=== PATIENT | female | born 1980 | race Caucasian/White ===

== ENCOUNTER 2023-11-16 20:24 | Outpatient (REF) | payer BC, SELFPAY ==
[2023-11-23 21:08] LABS: Age Gdln ACOG Testing Note (.); HPV Aptima Positive (Negative); HPV Genotype 16 Negative (Negative); HPV Genotype 18,45 Negative (Negative); IGP, Aptima HPV, rfx 16/18,45 Note (.)
== END 2023-11-16 20:25 | disposition home or self-care (01) ==
LOC: LAB 20:24
PROVIDERS: Visit Provider Obstetrics & Gynecology
DX: Z01.419 Encounter for gynecological examination (general) (routine) without abnormal findings (principal)
CPT/HCPCS: 87624; G0145

== ENCOUNTER 2023-12-18 08:46 | Outpatient (OUT) | payer BC, SELFPAY ==
--- NOTE | 2023-12-18 08:55 | ECG_ITS ---
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
== END 2023-12-18 08:47 | disposition home or self-care (01) ==
LOC: PST 08:47
PROVIDERS: Visit Provider Obstetrics & Gynecology
DX: Z01.810 Encounter for preprocedural cardiovascular examination (principal)
CPT/HCPCS: 93005

== ENCOUNTER 2024-01-01 06:09 | Day surgery (SDC) | payer BC, SELFPAY ==
[2023-12-18 09:24] VITALS: BP 128/72; PULSE 65; TEMP 36.4; O2SAT 98; BMI 28.7
[2024-01-01] VITALS (8 sets, daily range): BP systolic 108–144; BP diastolic 60–95; PULSE 61–85; TEMP 36.1–37; O2SAT 96–100; BMI 28.1
--- OUTSIDE RECORDS SUMMARY | 2024-01-01 06:11 | XMS_ITS | CCD ---
Author Organization [facility] Care Team Providers Care Buckle Strap Puncher Name Role Phone MARKER ., DR ELIAS Attending Unavailable MARKER ., DR ELIAS Admitting Unavailable MARKER ., DR ELIAS Consulting Unavailable MISC, DR BATISTA Primary Care Unavailable EH CORBETT Consulting Unavailable KARASIK ., DR WHELAN Consulting Unavailabl e KARASIK ., DR WHELAN Attending Unavailabl e MISC, DR BATISTA Primary Care Unavailable KARASIK ., DR WHELAN Admitting Unavailabl e ZIEBMARY, DR JERSON Dunlap Consulting Unavailable KARASIK ., DR WHELAN Admitting Unavailabl e KARASIK ., DR WHELAN Consulting Unavailabl e MISC, DR BATISTA Primary Care Unavailable KARASIK ., DR WHELAN Attending Unavailabl e CONCHABERENICE Attending Unavailable CONCHA, BERENICE Attending Unavailable Problems Active Problems Problem Classification Problem Date Documented Date Episodic/Chronic Immunizations and screening for infectious disease (1 source) Encounter for screening for human papillomavirus (HPV); Translations: [ENC SCREENING HUMAN PAPILLOMAVIRUS] Onset: 11-12-2022 Episodic Other screening for suspected conditions (not mental disorders or infectious disease) (8 sources) Encounter for screening mammogram for malignant neoplasm of breast; Translations: [Encounter for screening for malignant neoplasm of cervix] Onset: 11-10-2022 Episodic Past or Other Problems Problem Classification Problem Date Documented Da te Episodic/Chronic Nonspecific chest pain (4 sources) Other chest pain; Translations: [OTHER CHEST PAIN] Onset: 08-25-2022 Episodic Other aftercare (1 source) MCC (current) use of hormonal contraceptives; Translations: [USP HORMONAL CONTRACEPTIVES] Onset: 08-27-2022 Episodic Other aftercare (1 source) Other continuous churn buttermaker (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) drug therapy; Translations: [OTH SUBSTANCE ABUSE SPECIALIST CURRENT DRUG THERAPY] Onset: 08-27-2022 Episodic Other bone disease and musculoskeletal deformities (1 source) Chondrocostal junction syndrome [Krystlee]; Translations: [CHONDROCOSTAL JUNCTION SYND TIETZE] Onset: 08-27-2022 Episodic Screening and history of mental health and substance abuse codes (1 source) Personal history of nicotine dependence; Translations: [PERSONAL HISTORY OF NICOTINE DEPEND] Onset: 08-27-2022 Episodic Results Test Name Value Interpretation Reference Range Facility MG MAMM SCREEN 3D MARSHALL CADon 12-04-2022 MG MAMM SCREEN 3D MARSHALL CAD Patient: AYESHA GRANDE Exam Date: 12/04/2022 : 1980 Gender:F Ordering : DR CLEOPATRA BUTLER . Admission #: [id number] Family : Order #: [id number] CLICK HERE TO VIEW EXAM RADIOLOGY REPORT PROCEDURE: MAMMOGRAM SCREENING 3D BILATERAL CAD COMPARISON: MG MAMM SCREEN 3D MARSHALL CAD, 11/19/2021. MG MAMM SCREEN MARSHALL W CAD, 03/07/2020. MG MAMM RT DIAG W CAD, 02/28/2019. MG MAMM SCREEN MARSHALL W CAD, 08/16/2018. INDICATIONS: Screening mammography Calculator Name NCI Breast Cancer Risk Assessment Tool 5 Year Breast Cancer Risk Not Reported. Lifetime Breast Cancer Risk Not Reported. Personal Breast Cancer No Personal Ovarian Cancer No Treatments None Family Cancers None LOCATION: [facility] BREAST COMPOSITION: Scattered areas fibroglandular density. FINDINGS: DIAGNOSTIC CATEGORY 2--BENIGN FINDING: RIGHT BREAST: No significant suspicious finding. Scattered benign-appearing calcifications are present. Stable lymph node/nodule within lower-outer quadrant. No significant change has occurred. LEFT BREAST: No significant suspicious finding. Scattered benign-appearing calcifications are present. RECOMMENDATIONS: ROUTINE MAMMOGRAM AND CLINICAL EVALUATION IN 12 MONTHS. PLEASE NOTE: A NORMAL MAMMOGRAM DOES NOT EXCLUDE THE POSSIBILITY OF BREAST CANCER. A CLINICALLY SUSPICIOUS PALPABLE LUMP SHOULD BE BIOPSIED. Dictated by: Jerson Garcia M.D. on 12/04/2022 at 14:17 Approved by: Jerson Garcia M.D. on 12/04/2022 at 14:24 Normal [facility] PAP ACOG PANEL 2: 30 to 65on 11-19-2022 . . Normal [facility] Comment on above: Result Comment: Perf ormed at: WB Performed By: #### [id number] #### [facility] [address] [address] [address] Aiden Marshall Age Gdln ACOG Testing 30-65 Normal [facility] Comment on above: Performed By: #### [id number] #### [facility] [address] [address] [address] Aiden Marshall DIAGNOSIS: Comment Normal [facility] Comment on above: Result Comment: NEGA TIVE FOR INTRAEPITHELIAL LESION OR MALIGNANCY. Performed at: WB Performed By: #### [id number] #### [facility] [address] [address] [address] Aiden Marshall HPV Aptima Positive Abnormal Negative [facility] Comment on above: Result Comment: This nucleic acid amplification test detects fourteen high-risk HPV types (16,18,31,33,35,39,45,51,52,56,58,59,66,68) without differentiation. Performed at: =G Performed By: #### [id number] #### [facility] [address] [place] [address] Dr. Aiden Marshall HPV Genotype 16 Negative Normal Negative [facility] Comment on above: Performed By: #### [id number] #### [facility] [address] [address] [address] Aiden Marshall HPV Genotype 18,45 Negative Normal Negative [facility] Comment on above: Performed By: #### [id number] #### [facility] [address] [place] [address] Dr. Aiden Marshall HPV Genotype Reflex Comment Normal [facility] Comment on above: Result Comment: Mookie betancourt, see HPV Genotype results. Performed at: WB Performed By: #### [id number] #### [facility] [address] [place] [address] Dr. Aiden Marshall Methodology: Comment Normal [facility] Comment on above: Result Comment: This liquid based ThinPrep(R) pap test was screened with the use of an image guided system. Performed at: WB Performed By: #### [id number] #### [facility] [address] [place] [address] Dr. Aiden Marshall Note: Comment Normal [facility] Comment on above: Result Comment: The Pap smear is a screening test designed to aid in the detection of premalignant and malignant conditions of the uterine cervix. It is not a diagnostic procedure and should not be used as the sole means of detecting cervical cancer. Both false-positive and false-negative reports do occur. . Performed at: WB Performed By: #### [id number] #### [facility] [address] [place] [address] Dr. Aiden Marshall Performed by: Comment Normal [facility] Comment on above: Result Comment: Joey Harley, Cash Shortage Investigator (ASCP) Performed at: WB Performed By: #### [id number] #### [facility] [address] [place] [address] Dr. Aiden Marshall Specimen adequacy: Comment Normal [facility] Comment on above: Result Comment: Sati sfactory for evaluation. Endocervical and/or squamous metaplastic cells (endocervical component) are present. Performed at: WB Performed By: #### [id number] #### [facility] [address] [place] [address] Dr. Aiden Marshall XR Abdomen 2 Viewson 023 XR Abdomen 2 Views CLINICAL HISTORY: Epigastric pain for one week with occasional diarrhea. COMPARISON: None available. TECHNIQUE: Upright and recumbent radiographs of the abdomen and pelvis were obtained. FINDINGS: There is no evidence of obstruction, pneumoperitoneum, significant ileus, constipation, or pathologic calcifications identified. Mild to moderate rotary levoscoliosis is present. The visualized bases are clear. IMPRESSION: ESSENTIALLY UNREMARKABLE ABDOMEN SERIES. Report reported and signed by Jerson Freeman on 10/10/2022 1748 Normal [facility] Film Editor Supervisor CBC AUTO DIFFon 08-26-2022 BASO # 0.1 103/ul Normal 0.0-0.1 [facility] Comment on above: Performed By: #### C BC #### [facility] [address] [place] [address] Dr. Aiden Marshall Basophils/100 WBC (Bld) 0.8 % Normal 0.2-2.0 [facility] Comment on above: Performed By: #### C BC #### [facility] [address] [place] [address] Dr. Aiden Marshall EO # 0.1 103/ul Normal 0.0-0.7 [facility] Comment on above: Performed By: #### C BC #### [facility] [address] [place] [address] Dr. Aiden Marshall Eosinophils/100 WBC (Bld) 0.7 % Critically low 0.9-7.0 [facility] Comment on above: Performed By: #### C BC #### [facility] [address] [place] [address] Dr. Aiden Marshall Erythrocyte distribution width (RBC) [Ratio] 13.4 % Normal 11.0-15.0 [facility] Comment on above: Performed By: #### C BC #### [facility] [address] [place] [address] Dr. Aiden Marshall Hematocrit (Bld) [Volume fraction] 39.8 % Normal 36.0-48.0 [facility] Comment on above: Performed By: #### C BC #### [facility] [address] [place] [address] Dr. Aiden Marshall Hemoglobin (Bld) [Mass/Vol] 13.7 g/dL Normal 12.0-16.0 [facility] Comment on above: Performed By: #### C BC #### [facility] [address] [place] [address] Dr. Aiden Marshall IG # 0.03 10e3/ul Normal 0.00-0.03 [facility] Comment on above: Performed By: #### C BC #### [facility] [address] [place] [address] Dr. Aiden Marshall IG % 0.3 % Normal 0.0-0.5 [facility] Comment on above: Performed By: #### C BC #### [facility] [address] [place] [address] Dr. Aiden Marshall LYMPH # 4.0 103/ul Critically high 1.2-3.8 [facility] Comment on above: Performed By: #### C BC #### [facility] [address] [place] [address] Dr. Aiden Marshall Lymphocytes/100 WBC (Bld) 41.5 % Normal 20.5-60.0 [facility] Comment on above: Performed By: #### C BC #### [facility] [address] [place] [address] Dr. Aiden Marshall MANUAL DIFF REQ NO Normal [facility] Comment on above: Performed By: #### C BC #### [facility] [address] [place] [address] Dr. Aiden Marshall MCH (RBC) [Entitic mass] 27.6 pg Normal 26.7-34.0 [facility] Comment on above: Performed By: #### C BC #### [facility] [address] [place] [address] Dr. Aiden Marshall MCHC (RBC) [Mass/Vol] 34.4 g/dL Normal 29.9-35.2 [facility] Comment on above: Performed By: #### C BC #### [facility] [address] [place] [address] Dr. Aiden Marshall MCV (RBC) [Entitic vol] 80.2 fL Critically low 81.0-99.0 [facility] Comment on above: Performed By: #### C BC #### [facility] [address] [place] [address] Dr. Aiden Marshall MONO # 0.4 103/ul Normal 0.3-0.8 [facility] Comment on above: Performed By: #### C BC #### [facility] [address] [place] [address] Dr. Aiden Marshall Monocytes/100 WBC (Bld) 4.1 % Normal 1.7-12.0 [facility] Comment on above: Performed By: #### C BC #### [facility] [address] [place] [address] Dr. Aiden Marshall NEUT # 5.1 103/ul Normal 1.4-6.5 [facility] Comment on above: Performed By: #### C BC #### [facility] [address] [place] [address] Dr. Aiden Marshall Neutrophils/100 WBC (Bld) 52.6 % Normal 43.0-75.0 [facility] Comment on above: Performed By: #### C BC #### [facility] [address] [place] [address] Dr. Aiden Marshall Platelet mean volume (Bld) [Entitic vol] 9.6 fL Normal 9.5-13.5 [facility] Comment on above: Performed By: #### C BC #### [facility] [address] [place] [address] Dr. Aiden Marshall PLT 316 103/ul Normal 150-450 [facility] Comment on above: Performed By: #### C BC #### [facility] [address] [place] [address] Dr. Aiden Marshall RBC 4.96 106/ul Normal 4.20-5.40 [facility] Comment on above: Performed By: #### C BC #### [facility] [address] [place] [address] Dr. Aiden Marshall WBC 9.7 103/ul Normal 4.0-11.0 [facility] Comment on above: Performed By: #### C BC #### [facility] [address] [place] [address] Dr. Aiden Marshall D-DIMERon 08-26-2022 D-DIMER 0.19 mg/L FEU Normal <=0.59 [facility] Comment on above: Performed By: #### D DIM #### [facility] [address] [place] [address] Dr. Aiden Marshall D-DIMER COMMENTS SEE BELOW Normal [facility] Comment on above: Result Comment: Incr eases in D-Dimer concentration observed with thromboembolic events can be variable due to localization, size, and age of the thrombus. Therefore, a thromboembolic event cannot be diagnosed with certainty on the basis of the reference range. D-Dimers may also be elevated for a variety of disorders including: advanced age, , coronary disease, cancer, liver disease, infection, inflammation, hematoma, DIC, trauma, post-surgery, diabetes, thrombolytic or anticoagulant therapy, stress, and generalized hospitalization. Performed By: #### D DIM #### [facility] [address] [address] [address] Aiden Marshall PROF 14(COMP METB)on 023 Albumin [Mass/Vol] 3.9 g/dL Normal 3.4-5.0 [facility] Comment on above: Performed By: #### C MP, HSTROPN #### [facility] [address] [address] [address] Aiden Marshall Albumin/Globulin [Mass ratio] 1.1 {ratio} Normal [facility] Comment on above: Performed By: #### C MP, HSTROPN #### [facility] [address] [address] [address] Aiden Marshall ALP [Catalytic activity/Vol] 54 U/L Normal 46-116 [facility] Comment on above: Performed By: #### C MP, HSTROPN #### [facility] [address] [address] [address] Aiden Marshall ALT [Catalytic activity/Vol] 19 U/L Normal 14-59 [facility] Comment on above: Performed By: #### C MP, HSTROPN #### [facility] [address] [address] [address] Aiden Marshall Anion gap [Moles/Vol] 13.5 mmol/L Normal [facility] Comment on above: Performed By: #### C MP, HSTROPN #### [facility] [address] [address] [address] Aiden Marshall AST [Catalytic activity/Vol] 13 U/L Critically low 15-37 [facility] Comment on above: Performed By: #### C MP, HSTROPN #### [facility] [address] [address] [address] Aiden Marshall Bilirubin [Mass/Vol] 0.4 mg/dL Normal 0.2-1.0 [facility] Comment on above: Performed By: #### C MP, HSTROPN #### [facility] [address] [address] [address] Aiden Marshall Calcium [Mass/Vol] 9.0 mg/dL Normal 8.5-10.1 [facility] Comment on above: Performed By: #### C JAMMIE, HSTROPN #### [facility] [address] [place] [address] Dr. Aiden Marshall Chloride [Moles/Vol] 99 mmol/L Normal 98-107 [facility] Comment on above: Performed By: #### C JAMMIE, HSTROPN #### [facility] [address] [place] [address] Dr. Aiden Marshall CO2 [Moles/Vol] 27.1 mmol/L Normal 21.0-32.0 [facility] Comment on above: Performed By: #### C JAMMIE, HSTROPN #### [facility] [address] [place] [address] Dr. Aiden Marshall Creatinine [Mass/Vol] 0.69 mg/dL Normal 0.55-1.02 [facility] Comment on above: Performed By: #### C JAMMIE, HSTROPN #### [facility] [address] [place] [address] Dr. Aiden Marshall EGFR-AF ICELANDIC >60 Normal >=60 [facility] Comment on above: Performed By: #### C JAMMIE, HSTROPN #### [facility] [address] [place] [address] Dr. Aiden Marshall EGFR-NON AF ICELANDIC >60 Normal >=60 [facility] Comment on above: Performed By: #### C JAMMIE, HSTROPN #### [facility] [address] [place] [address] Dr. Aiden Marshall Globulin (S) [Mass/Vol] 3.7 g/dL Normal [facility] Comment on above: Performed By: #### C JAMMIE, HSTROPN #### [facility] [address] [place] [address] Dr. Aiden Marshall Glucose [Mass/Vol] 104 mg/dL Normal 74-106 [facility] Comment on above: Performed By: #### C JAMMIE, HSTROPN #### [facility] [address] [place] [address] Dr. Aiden Marshall Potassium [Moles/Vol] 3.6 mmol/L Normal 3.5-5.1 [facility] Comment on above: Performed By: #### C JAMMIE, HSTROPN #### [facility] [address] [address] [address] Aiden Marshall Protein [Mass/Vol] 7.6 g/dL Normal 6.4-8.2 [facility] Comment on above: Performed By: #### C MP, HSTROPN #### [facility] [address] [address] [address] Aiden Marshall Sodium [Moles/Vol] 136 mmol/L Normal 136-145 [facility] Comment on above: Performed By: #### C JAMMIE, HSTROPN #### [facility] [address] [place] [address] Dr. Aiden Marshall Urea nitrogen [Mass/Vol] 8.0 mg/dL Normal 7.0-18.0 [facility] Comment on above: Performed By: #### C JAMMIE, HSTROPN #### [facility] [address] [address] [address] Aiden Marshall Urea nitrogen/Creatinine [Mass ratio] 11.6 mg/mg Normal [facility] Comment on above: Performed By: #### C JAMMIE, HSTROPN #### [facility] [address] [place] [address] Dr. Aiden Marshall TROPONIN, HIGH SENSITIVITYon 08-26-2022 HSTROP 4.9 pg/mL Normal 4.0-51.3 [facility] Comment on above: Result Comment: CUT- OFF POINTS HAVE BEEN ESTABLISHED BASED ON THE FOURTH UNIVERSAL DEFINITIONS OF MYOCARDIAL INFARCTION. THE UPPER REFERENCE LIMIT (URL) OF TROPONIN, DEFINED THE 99TH PERCENTILE OF cTnI DISTRIBUTION IN A REFERENCE POPULATION, HAS BEEN CONFIRMED THE DECISION THRESHOLD FOR [place] DIAGNOSIS. Performed By: #### C MP, HSTROPN #### [facility] [address] [place] [address] Dr. Aiden Marshall XR CHEST 1 Von 08-26-2022 XR CHEST 1 V EXAM: XR CHEST 1 V HISTORY: CHEST PAIN, UNSPECIFIED COMPARISON: None. FINDINGS: 1 view(s) of the chest. The lungs are clear without focal consolidation or pleural effusion. There is no pneumothorax. The cardiomediastinal silhouette is normal. IMPRESSION: No acute cardiopulmonary abnormality. Electronically authenticated by: EH CORBETT Date: 2022-08-25 22:52 Normal [facility] US Venous, Unilat, Lower Ext Lefton 08-19-2022 US Venous, Unilat, Lower Ext Left CLINICAL HISTORY: Left calf and ankle pain. COMPARISON: None. TECHNIQUE: The left lower extremity veins were evaluated with color Doppler, grayscale imaging, and spectral analysis while using compression and augmentation when possible. FINDINGS: Evaluation of the left lower extremity veins from the thigh to the calf shows normal phasic flow, normal augmentation of the Doppler signal, and normal compression of the deep veins. There is no sonographic evidence for acute deep venous thrombosis from the left groin to the popliteal region. There is no sonographic evidence for acute deep vein thrombosis in the left calf veins. No evidence for SVT. IMPRESSION: No acute DVT of the left lower extremity veins from the groin to the knee. No acute DVT of the left calf veins. Report reported and signed by Elvin Barrios on 08/19/2022 1000 Normal [facility] Film Editor Supervisor Encounters Encounter Date Encounter Type Care Provider Facility Start: 12-08-2023 End: 12-08-2023 ambulatory BERENICE CONCHA Not Available Start: 11-16-2023 End: 11-16-2023 ambulatory BERENICE CONCHA Not Available Start: 07-31-2023 End: 07-31-2023 ambulatory BERENICE CONCHA Not Available Start: 12-04-2022 End: 12-05-[address] CLEOPATRA BUTLER . Facility[facility] Start: 11-10-2022 End: 11-10-[address] CLEOPATRA BUTLER . Facility[facility] Start: 08-25-2022 End: 08-26-[address] JADA CAMPBELL . Facility[facility] Payers Date Payer Category Payer Unknown [id number] 2.16.84 [id number] 1980 Unknown [id number] 2.16.84 [id number] 1980 Unknown [id number] 2.16.84 [id number] 1980 Unknown [id number] 2.16.84 [id number] 1980 Unknown [id number] 2.16.84 [id number] 1980 Unknown [id number] 1961 Unknown [id number] Summary Purpose Family History No Family History Records FoundNo Family History Records FoundNo Family History Records Found Advance Directives No Advanced Directives Records FoundNo Advanced Directives Records FoundNo Advanced Directives Records Found Additional Source Comments INFORMATION SOURCE (unrecogn ized section and content) DATE CREATED AUTHOR 10/11/2022 [facility] dical Specialist DATE CREATED AUTHOR AUTHOR'S ORGANIZ ATION 12/08/2022 [facility] DATE CREATED AUTHOR AUTHOR'S ORGANIZ ATION 12/09/2023 [facility] dical Specialists [facility] FOR RECORDS PERTAINING TO PATIENTS WHO ARE OR HAVE BEEN ENROLLED IN A CHEMICAL DEPENDENCY/SUBSTANCEABUSE PROGRAM, SOME INFORMATION MAY BE OMITTED. This clinical summary was aggregated from multiple sources. Caution should be exercised in using it in the provision of clinical care. This summary normalizes information from multiple sources, and as a consequence, information in this document may materially change the coding, format and clinical context of patient data. In addition, data may be omitted in some cases. CLINICAL DECISIONS SHOULD BE BASED ON THE PRIMARY CLINICAL RECORDS. [facility]. provides no warranty or guarantee of the accuracy or completeness of information in this document.
[2024-01-01 06:20] LABS: Basophils Absolute Auto 0.1 10^3/uL (0.0-0.1); Basophils Percent Auto 1.2 % (0.2-2.0); Eosinophils Absolute Auto 0.3 10^3/uL (0.0-0.7); Eosinophils Percent Auto 4.8 % (0.9-7.0); Hematocrit 40.3 % (36.0-48.0); Immature Granulocytes Abs Auto 0.01 10^3/uL (0.00-0.03); Immature Granulocytes Pct Auto 0.2 % (0.0-0.5); Lymphocytes Absolute Auto 2.2 10^3/uL (1.2-3.8); Mean Corpuscular HGB Conc 32.3 g/dL (29.9-35.2); Mean Corpuscular Hemoglobin 27.7 pg (26.7-34.0); Mean Corpuscular Volume 85.9 fL (81.0-99.0); Mean Platelet Volume 10.2 fL (9.5-13.5); Monocytes Absolute Auto 0.3 10^3/uL (0.3-0.8); Monocytes Percent Auto 5.8 % (1.7-12.0); Neutrophils Absolute Auto 2.8 10^3/uL (1.4-6.5); Platelet Count 291 10^3/uL (150-450); Red Blood Count 4.69 10^6/uL (4.20-5.40); Red Cell Distribution Width 13.2 % (11.0-15.0); White Blood Count 5.7 10^3/uL (4.0-11.0)
[2024-01-01 06:41] LABS: HCG Quantitative <1 mIU/mL
[2024-01-01] MEDS: LACTATED RINGER'S SOLUTION 1,000 ML 50 ML IV (06:43)
--- NOTE | 2024-01-01 08:32 | P.ON_ITS ---
Brief Operative Note Date of procedure: 01/01/24 Pre-op diagnosis general: desires permanent sterilization, multiparity Post-op diagnosis: same as pre-op Procedure: NAME OF PROCEDURE: robotic assisted bilateral laparoscopic salpingectomy PROCEDURE: The patient was taken back to the Operating Room where she was given general anesthesia without difficulty. She was then prepped and draped in the normal sterile fashion after being placed in a dorsal lithotomy position. A wet sponge stick was placed into the patient's vagina. Attention was then turned to the patient's abdomen, where a scalpel was used to make a small infraumbilical incision. The S retractors were then used to dissect the underlying layers until the fascia could be seen. The fascia was then grasped with Grayson clamps and tented up. A knife was then used to make a small incision to the fascia. The muscle was identified, at that time two sutures of #0 Vicryl on a GI needle was then used and placed through the fascia. the peritoneum was then identified and entered bluntly. The 10-4 Suhas was then placed into the patient's abdomen. This was confirmed with direct visualization of the bowel, using the laparoscope. The patient's abdomen was then insufflated using approximately 4 liters of CO2 gas. Survey of the patient's abdomen demonstrated ovaries were normal in appearance as well as both tubes and uterus. A second and third rt and lt lateral robotic ports which were 8 mm in size, was then placed after the skin incision was made under direct visualization . the robotic arms were engaged. The patient's tube on the patient's right side was identified and tented up using a grasper, the ligasure apparatus was then used to come across the mesosalpingx from the fimbriated end to the insertion site at the uterus, the tube was then amputated and removed in its entirety. This was done on the contralateral side. The tubes were the removed from the patients abdomen. Excellent hemostasis was noted. The lateral ports were then moved under direct visualization with excellent hemostasis. All instruments were removed from the patient's abdomen. The fascia was closed using the #0 Vicryl on GI needle. The skin was closed using 4-0 Vicryl subcuticularly. All instruments were removed from the patient's vagina as well. The patient was taken out of the dorsal lithotomy position and placed in the supine position and taken to recovery in s table condition. Sponge, lap and needle counts were correct x2. Anesthesia: GETA Surgeon: Eloy Lucero Infectious Disease Physician: Malika Farmer Estimated blood loss (mL): 5 Pathology: other (both tubes) Condition: stable Disposition: PACU Urinary Catheter Management Urinary Catheter Management Urethral: Cath placed during this visit: no
== END 2024-01-01 10:15 | disposition home or self-care (01) ==
PROVIDERS: Visit Provider Obstetrics & Gynecology
PROC: (CPT 00840; principal; 2024-01-01 07:30)
DX: Z30.2 Encounter for sterilization (principal); R01.1 Cardiac murmur, unspecified
CPT/HCPCS: 00840; 58661; 36415; 84702; 85025; 88302; J1094; J2704

== ENCOUNTER 2024-01-20 07:51 | Outpatient (OUT) | payer BC, SELFPAY ==
--- NOTE | 2024-01-20 07:54 | MM_ITS ---
Patient Name: AYESHA GRANDE MR#: [id number] : 1980 Exam Date: 01/20/2024 Ordering Doctor: DR Eloy Lucero . RADIOLOGY REPORT PROCEDURE: MM TOMOSYNTHESIS SCREENING BI COMPARISON: MG MAMM SCREEN 3D [facility] CAD, 12/04/2022. MG MAMM SCREEN 3D [facility] CAD, 11/19/2021. MG MAMM SCREEN MARSHALL W CAD, 03/07/2020. MG MAMM SCREEN MARSHALL W CAD, 08/16/2018. INDICATIONS: Screening Calculator Name NCI Breast Cancer Risk Assessment Tool 5 Year Breast Cancer Risk Not Reported. Lifetime Breast Cancer Risk Not Reported. Personal Breast Cancer No Personal Ovarian Cancer No Treatments None Family Cancers None LOCATION: [facility] BREAST COMPOSITION: There are scattered areas of fibroglandular density. FINDINGS: DIAGNOSTIC CATEGORY 2--BENIGN FINDING: RIGHT BREAST: No significant suspicious finding. Scattered benign-appearing calcifications are present. Scattered benign-appearing lymph nodes are present. No significant change has occurred. LEFT BREAST: No significant suspicious finding. Scattered benign-appearing calcifications are present. Scattered benign-appearing lymph nodes are present. No significant change has occurred. RECOMMENDATIONS: ROUTINE MAMMOGRAM AND CLINICAL EVALUATION IN 12 MONTHS. PLEASE NOTE: A NORMAL MAMMOGRAM DOES NOT EXCLUDE THE POSSIBILITY OF BREAST CANCER. A CLINICALLY SUSPICIOUS PALPABLE LUMP SHOULD BE BIOPSIED. Dictated by: Jerson Garcia M.D. on 01/22/2024 at 10:02 Approved by: Jerson Garcia M.D. on 01/22/2024 at 10:05
--- OUTSIDE RECORDS SUMMARY | 2024-01-20 08:06 | XMS_ITS | CCD ---
Author Organization [facility] Care Team Providers Care Health Education Aide Name Role Phone MARKER ., DR ELIAS [...] KARASIK ., DR WHELAN Attending Unavailabl e BERENICE LUCERO Attending Unavailable BERENICE LUCERO Attending Unavailable Berenice Lucero Attending Unavailable Berenice Lucero Admitting Unavailable Berenice Lucero Attending Provider [phone] Problems Active Problems Problem Classification Problem Date [...] MCC (current) use of hormonal contraceptives; Translations: [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] Onset: 08-27-2022 Episodic Other aftercare (1 source) 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; Translations: [OTH FPC CURRENT DRUG THERAPY] Onset: 08-27-2022 Episodic Other bone disease and musculoskeletal deformities (1 source) Chondrocostal junction syndrome [Tietze]; Translations: [CHONDROCOSTAL JUNCTION SYND TIETZE] Onset: 08-27-2022 Episodic Screening and history of mental health and substance abuse codes (1 source) Personal history of nicotine dependence; Translations: [PERSONAL HISTORY OF NICOTINE DEPEND] Onset: 08-27-2022 Episodic Results Test Name Value Interpretation Reference Range Facility [facility] 01-01-2024 L Specimen: [id number] Received: 01/01/24 Status: SAMINA Taylor Num: [id number] Spec Type: Surgical Subm Dr: Berenice Lucero Tissues: A Fallopian Tube - Sterilization (BILATERAL FT) Procedures: HE/2, Gross/Micro L2 Age/ Patient Sex Location Account Attending Physician Lucila Grande 43/F LABELL [id number] Berenice Lucero SPEC NUM: [id number] RECD: 01/01/24 STATUS: SAMINA TAYLOR NUM: [id number] BALAJI: 01/01/[address]: Berenice Lucero ENTERED: 01/01/[address] [facility] [address]: Jose Carlos,Lab SPEC TYPE: Surgical DEPT: JANIE GALLOWAY ORDERED: HE/2, Gross/Micro L2 ORDERED: HE/2, Gross/Micro L2 Pathological Diagnosis Bilateral fallopian tubes, bilateral salpingectomy: -Fimbriated bilateral fallopian tubes without significant histopathological changes, except 2 larger Walthard cysts, 1 tiny inclusion cyst, and 1 tiny Walthard nest on tube #2 Clinical Information Request for sterilization Gross Description Received in formalin labeled with the patient's name, date of and bilateral fallopian tubes are 2 undesignated fimbriated fallopian tubes assigned as tube #1 and tube #2. Tube #1 measures 5.3 cm in length by 0.4 cm in diameter and tube #2 measures 5.6 cm in length by 0.4 cm in diameter. Tube #2 contains 4 paratubal cysts adjacent to the fimbriated end ranging from 0.1 to 0.2 cm. Cut sections of each tube demonstrate intact luminal centers lined by unremarkable pineda mucosa. Maintenance Advisor sections are submitted in A1 (tube #1) and A2 (tube #2). TW ---- Specimen: [id number] Received: 01/01/24 Status: SAMINA Taylor Num: [id number] Spec Type: Surgical Subm Dr: Berenice Lucero Tissues: A Fallopian Tube - Sterilization (BILATERAL FT) Procedures: HE/2, Gross/Micro L2 ---- Patient: Lucila Grande [id number] (Continued) ---- Specimen: [id number] Received: 01/01/24 (Continued) Signed (signature on file) Moe Marshall MD 01/04/24 1935 ---- Specimen: [id number] Received: 01/01/24 Status: SAMINA Taylor Num: [id number] Spec Type: Surgical Subm Dr: Berenice Lucero Tissues: A Fallopian Tube - Sterilization (BILATERAL FT) Procedures: HE/2, Gross/Micro L2 ---- Patient: Lucila Grande [id number] (Continued) ---- Specimen: [id number] Received: 01/01/24 (Continued) CPT Codes 39706 ---- ---- Specimen: [id number] Received: 01/01/24 Status: SAMINA Taylor Num: [id number] Spec Type: Surgical Subm Dr: Berenice Lucero Tissues: A Fallopian Tube - Sterilization (BILATERAL FT) Procedures: HE/2, Gross/Micro L2 ---- Patient: Lucila Grande [id number] (Continued) ---- Signed (signature on file) Moe Marshall MD 01/04/241934 Normal [facility] MG MAMM SCREEN 3D MARSHALL CADon 12-04-2022 MG MAMM SCREEN 3D MARSHALL CAD Patient: LUCILA GRANDE Exam Date: 12/04/2022 : 1980 Gender:F Ordering : DR CLEOPATRA BUTLER . Admission #: [id number] Family : Order #: [id number] CLICK HERE TO VIEW EXAM RADIOLOGY REPORT [...] Treatments None Family Cancers None LOCATION: [facility] BREAST COMPOSITION: Scattered areas fibroglandular density. FINDINGS: [...] Garcia M.D. on 12/04/2022 at 14:24 Normal [facility] PAP ACOG PANEL 2: 30 to 65on 11-19-2022 . . Normal [facility] Comment on above: Result Comment: Perf ormed at: WB Performed By: #### [id number] #### [facility] [address] [address] [address] Aiden Marshall Age Gdln ACOG Testing 30-65 Normal [facility] Comment on above: Performed By: #### [id number] #### [facility] [address] [address] [address] Aiden Marshall DIAGNOSIS: Comment Normal [facility] Comment on above: Result Comment: NEGA TIVE FOR INTRAEPITHELIAL LESION OR MALIGNANCY. Performed at: WB Performed By: #### [id number] #### [facility] [address] [address] [address] Aiden Marshall HPV Aptima Positive Abnormal Negative [facility] Comment on above: Result Comment: This nucleic acid amplification test detects fourteen high-risk HPV types (16,18,31,33,35,39,45,51,52,56,58,59,66,68) without differentiation. Performed at: =G Performed By: #### 4 [id number] #### [facility] [address] [address] [address] Aiden Marshall HPV Genotype 16 Negative Normal Negative [facility] Comment on above: Performed By: #### 4 [id number] #### [facility] [address] [place] [address] Dr. Aiden Marshall HPV Genotype 18,45 Negative Normal Negative [facility] Comment on above: Performed By: #### 4 [id number] #### [facility] [address] [place] [address] Dr. Aiden Marshall HPV Genotype Reflex Comment Normal [facility] Comment on above: Result Comment: Mookie betancourt, see HPV Genotype results. Performed at: WB Performed By: #### 4 [id number] #### [facility] [address] [place] [address] Dr. Aiden Marshall Methodology: Comment Normal [facility] Comment on above: Result Comment: This liquid based ThinPrep(R) pap test was screened with the use of an image guided system. Performed at: WB Performed By: #### 4 [id number] #### [facility] [address] [place] [address] Dr. Aiden Marshall Note: Comment Normal [facility] Comment on above: Result Comment: The Pap smear is a screening test designed to aid in the detection of premalignant and malignant conditions of the uterine cervix. It is not a diagnostic procedure and should not be used as the sole means of detecting cervical cancer. Both false-positive and false-negative reports do occur. . Performed at: WB Performed By: #### [id number] #### [facility] [address] [place] [address] Dr. Aiden Marshall Performed by: Comment Normal [facility] Comment on above: Result Comment: Joey Harley, Research Project Manager (ASCP) Performed at: WB Performed By: #### 4 [id number] #### [facility] [address] [place] [address] Dr. Aiden Marshall Specimen adequacy: Comment Normal [facility] Comment on above: Result Comment: Sati sfactory for evaluation. Endocervical and/or squamous metaplastic cells (endocervical component) are present. Performed at: WB Performed By: #### 4 [id number] #### [facility] [address] [place] [address] Dr. Aiden Marshall XR Abdomen 2 Viewson [...] by Jerson Freeman on 10/10/2022 1748 Normal [facility] CBC AUTO DIFFon 08-26-2022 BASO # 0.1 103/ul Normal 0.0-0.1 [facility] Comment on above: Performed By: #### C BC #### [facility] [address] [place] [address] Dr. Aiden Marshall Basophils/100 WBC (Bld) 0.8 % Normal 0.2-2.0 [facility] Comment on above: Performed By: #### C BC #### [facility] [address] [place] [address] Dr. Aiden Marshall EO # 0.1 103/ul Normal 0.0-0.7 [facility] Comment on above: Performed By: #### C BC #### [facility] [address] [place] [address] Dr. Aiden Marshall Eosinophils/100 WBC (Bld) 0.7 % Critically low 0.9-7.0 [facility] Comment on above: Performed By: #### C BC #### [facility] [address] [place] [address] Dr. Aiden Marshall Erythrocyte distribution width (RBC) [Ratio] 13.4 % Normal 11.0-15.0 [facility] Comment on above: Performed By: #### C BC #### [facility] [address] [place] [address] Dr. Aiden Marshall Hematocrit (Bld) [Volume fraction] 39.8 % Normal 36.0-48.0 [facility] Comment on above: Performed By: #### C BC #### [facility] [address] [place] [address] Dr. Aiden Marshall Hemoglobin (Bld) [Mass/Vol] 13.7 g/dL Normal 12.0-16.0 [facility] Comment on above: Performed By: #### C BC #### [facility] [address] [place] [address] Dr. Aiden Marshall IG # 0.03 10e3/ul Normal 0.00-0.03 [facility] Comment on above: Performed By: #### C BC #### [facility] [address] [place] [address] Dr. Aiden Marshall IG % 0.3 % Normal 0.0-0.5 [facility] Comment on above: Performed By: #### C BC #### [facility] [address] [place] [address] Dr. Aiden Marshall LYMPH # 4.0 103/ul Critically high 1.2-3.8 [facility] Comment on above: Performed By: #### C BC #### [facility] [address] [place] [address] Dr. Aiden Marshall Lymphocytes/100 WBC (Bld) 41.5 % Normal 20.5-60.0 [facility] Comment on above: Performed By: #### C BC #### [facility] [address] [place] [address] Dr. Aiden Marshall MANUAL DIFF REQ NO Normal [facility] Comment on above: Performed By: #### C BC #### [facility] [address] [place] [address] Dr. Aiden Marshall MCH (RBC) [Entitic mass] 27.6 pg Normal 26.7-34.0 [facility] Comment on above: Performed By: #### C BC #### [facility] [address] [place] [address] Dr. Aiden Marshall MCHC (RBC) [Mass/Vol] 34.4 g/dL Normal 29.9-35.2 [facility] Comment on above: Performed By: #### C BC #### [facility] [address] [place] [address] Dr. Aiden Marshall MCV (RBC) [Entitic vol] 80.2 fL Critically low 81.0-99.0 [facility] Comment on above: Performed By: #### C BC #### [facility] [address] [place] [address] Dr. Aiden Marshall MONO # 0.4 103/ul Normal 0.3-0.8 [facility] Comment on above: Performed By: #### C BC #### [facility] [address] [place] [address] Dr. Aiden Marshall Monocytes/100 WBC (Bld) 4.1 % Normal 1.7-12.0 [facility] Comment on above: Performed By: #### C BC #### [facility] [address] [place] [address] Dr. Aiden Marshall NEUT # 5.1 103/ul Normal 1.4-6.5 [facility] Comment on above: Performed By: #### C BC #### [facility] [address] [place] [address] Dr. Aiden Marshall Neutrophils/100 WBC (Bld) 52.6 % Normal 43.0-75.0 [facility] Comment on above: Performed By: #### C BC #### [facility] [address] [place] [address] Dr. Aiden Marshall Platelet mean volume (Bld) [Entitic vol] 9.6 fL Normal 9.5-13.5 [facility] Comment on above: Performed By: #### C BC #### [facility] [address] [place] [address] Dr. Aiden Marshall PLT 316 103/ul Normal 150-450 [facility] Comment on above: Performed By: #### C BC #### [facility] [address] [place] [address] Dr. Aiden Marshall RBC 4.96 106/ul Normal 4.20-5.40 [facility] Comment on above: Performed By: #### C BC #### [facility] [address] [place] [address] Dr. Aiden Marshall WBC 9.7 103/ul Normal 4.0-11.0 [facility] Comment on above: Performed By: #### C BC #### [facility] [address] [address] [address] Aiden Marshall D-DIMERon 08-26-2022 D-DIMER 0.19 mg/L FEU Normal <=0.59 [facility] Comment on above: Performed By: #### D DIM #### [facility] [address] [place] [address] Dr. Aiden Marshall D-DIMER COMMENTS SEE BELOW Normal [facility] Comment on above: Result Comment: Incr eases [...] hospitalization. Performed By: #### D DIM #### [facility] [address] [place] [address] Dr. Aiden Marshall PROF 14(COMP METB)on 023 Albumin [Mass/Vol] 3.9 g/dL Normal 3.4-5.0 [facility] Comment on above: Performed By: #### C JAMMIE, HSTROPN #### [facility] [address] [place] [address] Dr. Aiden Marshall Albumin/Globulin [Mass ratio] 1.1 {ratio} Normal [facility] Comment on above: Performed By: #### C MP, HSTROPN #### [facility] [address] [place] [address] Dr. Aiden Marshall ALP [Catalytic activity/Vol] 54 U/L Normal 46-116 [facility] Comment on above: Performed By: #### C MP, HSTROPN #### [facility] [address] [address] [address] Aiden Marshall ALT [Catalytic activity/Vol] 19 U/L Normal 14-59 [facility] Comment on above: Performed By: #### C MP, HSTROPN #### [facility] [address] [address] [address] Aiden Marshall Anion gap [Moles/Vol] 13.5 mmol/L Normal [facility] Comment on above: Performed By: #### C MP, HSTROPN #### [facility] [address] [place] [address] Dr. Aiden Marshall AST [Catalytic activity/Vol] 13 U/L Critically low 15-37 [facility] Comment on above: Performed By: #### C MP, HSTROPN #### [facility] [address] [place] [address] Dr. Aiden Marshall Bilirubin [Mass/Vol] 0.4 mg/dL Normal 0.2-1.0 [facility] Comment on above: Performed By: #### C MP, HSTROPN #### [facility] [address] [place] [address] Dr. Aiden Marshall Calcium [Mass/Vol] 9.0 mg/dL Normal 8.5-10.1 [facility] Comment on above: Performed By: #### C MP, HSTROPN #### [facility] [address] [place] [address] Dr. Aiden Marshall Chloride [Moles/Vol] 99 mmol/L Normal 98-107 [facility] Comment on above: Performed By: #### C MP, HSTROPN #### [facility] [address] [place] [address] Dr. Aiden Marshall CO2 [Moles/Vol] 27.1 mmol/L Normal 21.0-32.[address] [facility] Comment on above: Performed By: #### C MP, HSTROPN #### [facility] [address] [place] [address] Dr. Aiden Marshall Creatinine [Mass/Vol] 0.69 mg/dL Normal 0.55-1.02 [facility] Comment on above: Performed By: #### C MP, HSTROPN #### [facility] [address] [place] [address] Dr. Aiden Marshall EGFR-AF ALGERIAN >60 Normal >=60 [facility] Comment on above: Performed By: #### C MP, HSTROPN #### [facility] [address] [place] [address] Dr. Aiden Marshall EGFR-NON AF ALGERIAN >60 Normal >=60 [facility] Comment on above: Performed By: #### C MP, HSTROPN #### [facility] [address] [place] [address] Dr. Aiden Marshall Globulin (S) [Mass/Vol] 3.7 g/dL Normal [facility] Comment on above: Performed By: #### C MP, HSTROPN #### [facility] [address] [place] [address] Dr. Aiden Marshall Glucose [Mass/Vol] 104 mg/dL Normal 74-106 [facility] Comment on above: Performed By: #### C MP, HSTROPN #### [facility] [address] [place] [address] Dr. Aiden Marshall Potassium [Moles/Vol] 3.6 mmol/L Normal 3.5-5.1 [facility] Comment on above: Performed By: #### C MP, HSTROPN #### [facility] [address] [place] [address] Dr. Aiden Marshall Protein [Mass/Vol] 7.6 g/dL Normal 6.4-8.2 [facility] Comment on above: Performed By: #### C MP, HSTROPN #### [facility] [address] [place] [address] Dr. Aiden Marshall Sodium [Moles/Vol] 136 mmol/L Normal 136-145 [facility] Comment on above: Performed By: #### C MP, HSTROPN #### [facility] [address] [place] [address] Dr. Aiden Marshall Urea nitrogen [Mass/Vol] 8.0 mg/dL Normal 7.0-18.0 [facility] Comment on above: Performed By: #### C MP, HSTROPN #### [facility] [address] [address] [address] Aiden Marshall Urea nitrogen/Creatinin e [Mass ratio] 11.6 mg/mg Normal [facility] Comment on above: Performed By: #### C MP, HSTROPN #### [facility] [address] [address] [address] Aiden Marshall TROPONIN, HIGH SENSITIVITYon 08-26-2022 HSTROP 4.9 pg/mL Normal 4.0-51.3 [facility] Comment on above: Result Comment: CUT- OFF POINTS HAVE BEEN ESTABLISHED BASED ON THE FOURTH UNIVERSAL DEFINITIONS OF MYOCARDIAL INFARCTION. THE UPPER REFERENCE LIMIT (URL) OF TROPONIN, DEFINED THE 99TH PERCENTILE OF cTnI DISTRIBUTION IN A REFERENCE POPULATION, HAS BEEN CONFIRMED THE DECISION THRESHOLD FOR [place] DIAGNOSIS. Performed By: #### C MP, HSTROPN #### [facility] [address] [address] [address] Aiden Marshall XR CHEST 1 Von 08-26-2022 XR CHEST 1 V EXAM: XR CHEST 1 V HISTORY: CHEST PAIN, UNSPECIFIED COMPARISON: None. FINDINGS: 1 view(s) of the chest. The lungs are clear without focal consolidation or pleural effusion. There is no pneumothorax. The cardiomediastinal silhouette is normal. IMPRESSION: No acute cardiopulmonary abnormality. Electronically authenticated by: EH CORBETT Date: 2022-08-25 22:52 Normal [facility] US Venous, Unilat, Lower Ext Lefton 08-19-2022 [...] by Elvin Barrios on 08/19/2022 1000 Normal [facility] Teacher Encounters Encounter Date Encounter Type Care Provider Facility Start: 01-01-2024 End: 01-01-2024 ambulatory Berenice Nic Facility:[facility] Start: 01-01-2024 End: 01-01-2024 ambulatory Berenice Nic Work Phone: [facility] Work Phone: Start: 01-01-2024 End: 01-01-2024 Departed Referred Berenice Nic Work Phone: [facility] Start: 12-08-2023 End: 12-08-2023 ambulatory BERENICE NIC Not Available Start: 11-16-2023 End: 11-16-2023 ambulatory BERENICE NIC Not Available Start: 07-31-2023 End: 07-31-2023 ambulatory BERENICE NIC Not Available Start: 12-04-2022 End: 12-05-[address] CLEOPATRA BUTLER . Facility:[facility] Start: 11-10-2022 End: 11-10-[address] CLEOPATRA BUTLER . Facility[facility] Start: 08-25-2022 End: 08-26-[address] JADA CAMPBELL . Facility:[facility] Payers Date Payer Category Payer Self-pay 1980 Unknown [id number] 1980 Unknown [id number] 1980 Unknown [id number] 1980 Unknown [id number] 1980 Unknown [id number] 1980 Unknown [id number] 1961 Unknown [id number] Unknown [id number] Social History Date Type [facility]ail [facility] Work Phone: Start: 1980 Sex Assigned At Female F [facility] Evaluation note Note Date & Type Note Facility Evaluation note No assessment information availa ble [facility] Work Phone: Summary Purpose Family History No Family History Records FoundNo Family History Records FoundNo Family History Records FoundNo Family History Records Found Advance Directives Advance Directive Response Recorded Date/ Time Advance Directives No December 31 12:05pm Additional Source Comments INFORMATION SOURCE (unrecogn ized section and content) DATE CREATED AUTHOR 10/11/2022 [facility] DATE CREATED AUTHOR AUTHOR'S ORGANIZ ATION 12/08/2022 [facility] DATE CREATED AUTHOR AUTHOR'S ORGANIZ ATION 12/09/2023 [facility] EPIC DATE CREATED AUTHOR AUTHOR'S ORGANIZ ATION 01/07/2024 [facility] Care Teams (unrecognized sec tion and content) Team Status: Inactive Member Role Status Dates Berenice Lucero Attending Provider Active Start: June blair 2023 End: January 01, 2024 Goals (unrecognized section and content) Goals may be documented in a n alternate section FOR RECORDS PERTAINING TO PATIENTS WHO ARE [...] BE BASED ON THE PRIMARY CLINICAL RECORDS. [employer] [facility]. provides no warranty or guarantee of the accuracy or completeness of information in this document.
== END 2024-01-20 07:52 | disposition home or self-care (01) ==
LOC: MAMMO 07:51
PROVIDERS: Visit Provider Obstetrics & Gynecology
DX: Z12.31 Encounter for screening mammogram for malignant neoplasm of breast (principal)
CPT/HCPCS: 77063; 77067

== ENCOUNTER 2025-01-11 12:00 | Outpatient (REF) | payer BC, SELFPAY ==
--- OUTSIDE RECORDS SUMMARY | 2025-01-11 11:00 | XMS_ITS | Encounter Summary ---
Author Organization [facility] Address [address] [facility] [place] [address] Care Team Providers Care Machinery Engineer Name Role Phone Unavailable Primary Care Provider Unavailabl e Reason for Visit * Reason Comments Well Women Visit Encounter Details Date Type Department Care Team (Late st Contact Info) Description 01/11/2025 11:00 AM EDT Office Visit [facility] [address] [facility] [address] [place], [phone] Bethanie Barber PA [address] [facility] [address] Well woman exam with routine gynecological exam; Breast cancer screening by mammogram Social History Tobacco Use Types Packs/Day Years Used Date Smoking Tobacco: Never Alcohol Use Standard Drinks/Week Comments Yes 0 (1 standard drink = 0.6 oz pur e alcohol) Comments No Sex and Gender Information Value Date Recorded Sex Assigned at Not on file Legal Sex Female 7:06 PM EDT Gender Identity Not on file Sexual Orientation Not on file documented as of this encounter Last Filed Vital Signs Vital Sign Reading Time Taken Comments Blood Pressure 120/70 01/11/2025 11:02 AM EDT Pulse - - Temperature - - Respiratory Rate - - Oxygen Saturation - - Inhaled Oxygen Concentration - - Weight 66.2 kg (146 lb) 01/11/2025 11:02 AM EDT Height - - Body Mass Index 29.49 11/10/2022 12:00 PM EDT documented in this encounter Progress Notes * KRISTA Cheema - 01/11/2025 11:00 AM EDT Reason for Appointment: Patient ID: Lucila Alarcon is a 44 y.o. female who presents for Well Women Visit Patient presents today for Annual Exam. MEDICATIONS Current Outpatient Medications Medication Instructions Melatonin 1 mg, Nightly ALLERGIES No Known Allergies PROBLEMS Active Ambulatory Problems Diagnosis Date Noted Breast cancer screening by mammogram 11/16/2023 Resolved Ambulatory Problems Diagnosis Date Noted No Resolved Ambulatory Problems Past Medical History: Diagnosis Date Heart murmur HISTORY PAST MEDICAL HISTORY SOCIAL HISTORY Past Medical History: Diagnosis Date Heart murmur Social History Tobacco Use Smoking status: Never Smokeless tobacco: Not on file Substance Use Topics Alcohol use: Yes Drug use: Not on file FAMILY HISTORY Family History Problem Relation Name Age of Onset No Known Problems Brother SURGICAL HISTORY Past Surgical History: Procedure Laterality Date DILATION AND CURETTAGE OF UTERUS 2004 SALPINGECTOMY Bilateral 01/01/2024 WISDOM TOOTH EXTRACTION 1996 REVIEW OF SYSTEMS Review of Systems: Review of Systems Constitutional: Negative. HENT: Negative. Eyes: Negative. Respiratory: Negative. Cardiovascular: Negative. Gastrointestinal: Negative. Genitourinary: Negative. Musculoskeletal: Negative. Skin: Negative. Neurological: Negative. All other systems reviewed and are negative. Hematological: Negative. Endocrine: Negative. Allergic/Immunologic: Negative. OBJECTIVE Objective: Physical Exam Constitutional: Appearance: Normal appearance. She is normal weight. HENT: Head: Normocephalic. Cardiovascular: Rate and Rhythm: Normal rate. Pulses: Normal pulses. Pulmonary: Effort: Pulmonary effort is normal. Breath sounds: Normal breath sounds. Abdominal: Palpations: Abdomen is soft. Musculoskeletal: General: Normal range of motion. Neurological: General: No focal deficit present. Mental Status: She is alert and oriented to person, place, and time. Psychiatric: Mood and Affect: Mood normal. Behavior: Behavior normal. Thought Content: Thought content normal. Judgment: Judgment normal. Vitals and nursing note reviewed. Vitals: Estimated body mass index is 29.49 kg/m?? as calculated from the following: Height as of 11/10/22: 4' 11 . Weight as of this encounter: 146 lb. BP: 120/70 Patient's last menstrual period was 12/16/2024. ASSESSMENT & PLAN ICD-10-CM 1. Well woman exam with routine gynecological exam Z01.419 THIN PREP TIS PAP AND HR HPV DNA 2. Breast cancer screening by mammogram Z12.31 Bilateral screening mammogram Bilateral screening mammogram Annual: Patient presents today for an annual exam. Patient states she is doing well and has no complaints. Pap was obtained without difficulty and patient given mammogram order to have scheduled/obtained. Orders Placed This Encounter Procedures Bilateral screening mammogram Patient states she is having some perimenopausal symptoms including dryness and insomnia Follow Up: Patient is to return in one year for annual unless needed otherwise. Documented by KRISTA Cheema on behalf of: KRISTA Cheema documented in this encounter Plan of Treatment Upcoming Encounters Date Type Department Care Team (Late st Contact Info) Description 01/15/2026 11:00 AM EDT Office Visit [facility] [address] [facility] [place] [address] Bethanie Barber PA [address] [facility] [address] [place], [place] [id number] Scheduled Orders Name Type Priority Associated Diagnoses Orde r Schedule Bilateral screening mammogram Imaging Routine Breast cancer screening by mammogram Expected: 01/11/2025 (Approximate), Expires: 03/13/2026 THIN PREP TIS PAP AND HR HPV DNA Pathology and Cytology Routine Well woman exam with routine gynecological exam Ordered: 01/11/2025 documented as of this encounter Visit Diagnoses Diagnosis Well woman exam with routine gynecological exam Routine gynecological examination Breast cancer screening by mammogram documented in this encounter
--- OUTSIDE RECORDS SUMMARY | 2025-01-11 12:03 | XMS_ITS | Clinical Summary ---
Author Organization [facility] Address [address] [place] [address] Care Team Providers Care Warehouse Packaging Supervisor Name Role Phone Unavailable Primary Care Provider Unavailabl e Allergies No known active allergies Medications Melatonin 1 MG capsule Take 1 mg by mouth at bedtime Active estradiol (Estrace) 0.1 MG/GM vaginal creamIndications:W ell woman exam with routine gynecological exam 2g vaginal daily for 2 weeks, then 2 times weekly following initial 2 weeks 42.5 g 5 Active magnesium oxide (Mag-Ox) 400 MG tabletIndications: Well woman exam with routine gynecological exam Take 1 tablet (400 mg) by mouth Daily 30 tablet 6 5 02/11/20 25 Active Active Problems Problem Noted Date Diagnosed Date Breast cancer screening by mammogram 11/16/2023 Encounters Date Type Department Care Team Description 01/11/2025 11:00 AM EDT Office Visit [facility] [address] [place] [address] Bethanie Barber PA Well woman exam with routine gynecological exam; Breast cancer screening by mammogram 01/11/2025 Bamboo flowsheet [facility] [address] [facility] [address] Bethanie Barber PA 01/10/2025 Travel from Last 3 Months Immunizations Immunization Administration Dates Next Due Influenza, injectable, MDCK, preservative free, quadrivalent 06/25/2023 Family History Medical History Relation Name Comments No Known Problems Brother Relation Name Status Comments Brother Alive Daughter Alive Father Alive Mother Alive Son Alive Social History Tobacco Use Types Packs/Day Years Used Date Smoking Tobacco: Never Tobacco Cessation:Counseling Given: Not Answered Alcohol Use Standard Drinks/Week Comments Yes 0 (1 standard drink = 0.6 oz pur e alcohol) Comments No Sex and Gender Information Value Date Recorded Sex Assigned at Not on file Legal Sex Female 7:06 PM EDT Gender Identity Not on file Sexual Orientation Not on file Last Filed Vital Signs Vital Sign Reading Time Taken Comments Blood Pressure 120/70 01/11/2025 11:02 AM EDT Pulse - - Temperature - - Respiratory Rate - - Oxygen Saturation - - Inhaled Oxygen Concentration - - Weight 66.2 kg (146 lb) 01/11/2025 11:02 AM EDT Height 149.9 cm (4' 11 ) 11/10/2022 12:00 PM EDT Body Mass Index 29.49 11/10/2022 12:00 PM EDT Plan of Treatment Upcoming Encounters Date Type Department Care Team (Late st Contact Info) Description 01/15/2026 11:00 AM EDT Office Visit [facility] [address] [facility] [place] [address] Bethanie Barber PA [address] [facility] [address] [place], [place] [id number] Health Maintenance Due Date Last Done Comments CT Colonography 1978 Colonoscopy 1978 Colorectal Cancer Screening 1978 FIT-DNA 1978 FIT 1978 FOBT 1978 Sigmoidoscopy 1978 Mammogram 01/21/2025 01/22/2024, 12/04/2022 Influenza Vaccine (Season Ended) 2025 06/25/20, 05/28/2018 Cervical Cancer Screening 11/15/2028 HPV/Cotest 11/15/2028 Pap Smear 11/15/2028 11/16/2023, 11/10/2022 Procedures Procedure Name Priority Date/Time Associated Diagnosis Comments MM TOMOSYNTHESIS SCREENING BI 01/22/2024 10:05 AM EDT PAP SMEAR Routine 11/16/2023 12:00 AM EDT from Last 3 Months or Most Recently Relevant to Health Maintenance Results * MM TOMOSYNTHESIS SCREENING BI (01/22/2024 10:05 AM EDT) Anatomical Region Laterality Modality Other 01/22/2024 10:0 5 AM EDT Narrative 01/22/2024 10:06 [place] [address] Mammography Report Signed Patient: LUCILA GRANDE MR#: [id number] : 1980 Acct:[id number] Age/Sex: 43 / F ADM Date: 01/20/24 Loc: MAMMO Attending Dr: Eloy Lucero D.O. Ordering Physician: Eloy Lucero D.O. Results: Date of Service: 01/20/24 Follow Up: Procedure(s): MM tomosynthesis screening BI Accession Number(s): [id number] cc: Eloy Lucero D.O.; Physician,Non-Staff M.DPerico Patient Name: LUCILA GRANDE MR#: [id number] : 1980 Exam Date: 01/20/2024 Ordering Doctor: DR Eloy Lucero . RADIOLOGY REPORT PROCEDURE: MM TOMOSYNTHESIS SCREENING BI COMPARISON: MG MAMM SCREEN 3D MARSHALL CAD, 12/04/2022. MG MAMM SCREEN 3D MARSHALL CAD, 11/19/2021. MG MAMM SCREEN MARSHALL W CAD, 03/07/2020. MG MAMM SCREEN MARSHALL W CAD, 08/16/2018. INDICATIONS: Screening Calculator Name NCI Breast Cancer Risk Assessment Tool 5 Year Breast Cancer Risk Not Reported. Lifetime Breast Cancer Risk Not Reported. Personal Breast Cancer No Personal Ovarian Cancer No Treatments None Family Cancers None LOCATION: [facility] BREAST COMPOSITION: There are scattered areas of fibroglandular density. FINDINGS: DIAGNOSTIC CATEGORY 2--BENIGN FINDING: RIGHT BREAST: No significant suspicious finding. Scattered benign-appearing calcifications are present. Scattered benign-appearing lymph nodes are present. No significant change has occurred. LEFT BREAST: No significant suspicious finding. Scattered benign-appearing calcifications are present. Scattered benign-appearing lymph nodes are present. No significant change has occurred. RECOMMENDATIONS: ROUTINE MAMMOGRAM AND CLINICAL EVALUATION IN 12 MONTHS. PLEASE NOTE: A NORMAL MAMMOGRAM DOES NOT EXCLUDE THE POSSIBILITY OF BREAST CANCER. A CLINICALLY SUSPICIOUS PALPABLE LUMP SHOULD BE BIOPSIED. Dictated by: Jerson Garcia M.D. on 01/22/2024 at 10:02 Approved by: Jerson Garcia M.D. on 01/22/2024 at 10:05 Dictated By: Jerson Garcia M.D. Signed By: 01/22/24 1006 DD/ 1005 TD/TT: Assurance Sourcing Manager: Procedure Note Radiology, Radiologist, MD - 01/22/20[address] [place] [address] Mammography Report Signed Patient: LUCILA GRANDE RMR#: [id number] : 1980Acct:[id number] Age/Sex: 43 / FADM Date: 01/20/24 Loc: MAMMO Attending Dr: Eloy Lucero D.O. Ordering Physician: Eloy Lucero D.O.Results: Date of Service: 01/20/24Follow Up: Procedure(s): MM tomosynthesis screening BI Accession Number(s): [id number] cc: Eloy Lucero D.O.; Physician,Non-Staff Fariba Patient Name: LUCILA GRANDE MR#: [id number] : 1980 Exam Date: 01/20/2024 Ordering Doctor: DR Eloy Lucero . RADIOLOGY REPORT PROCEDURE: MM TOMOSYNTHESIS SCREENING BI COMPARISON: MG MAMM SCREEN 3D MARSHALL CAD, 12/04/2022. MG MAMM SCREEN 3DBIL CAD, 11/19/2021. MG MAMM SCREEN MARSHALL W CAD, 03/07/2020. MG MAMM SCREEN BILW CAD, 08/16/2018. INDICATIONS: Screening Calculator Name NCI Breast Cancer Risk Assessment Tool 5 Year Breast Cancer Risk Not Reported. Lifetime Breast Cancer Risk Not Reported. Personal Breast Cancer No Personal Ovarian Cancer No Treatments None Family Cancers None LOCATION: [facility] BREAST COMPOSITION: There are scattered areas of fibroglandulardensity. FINDINGS: DIAGNOSTIC CATEGORY 2--BENIGN FINDING: RIGHT BREAST: No significant suspicious finding. Scatteredbenign-appearing calcifications are present. Scattered benign-appearing lymph nodes are present. No significant change has occurred. LEFT BREAST: No significant suspicious finding. Scatteredbenign-appearing calcifications are present. Scattered benign-appearing lymph nodes are present. No significant change has occurred. RECOMMENDATIONS: ROUTINE MAMMOGRAM AND CLINICAL EVALUATION IN 12 MONTHS. PLEASE NOTE: A NORMAL MAMMOGRAM DOES NOT EXCLUDE THE POSSIBILITY OFBREAST CANCER. A CLINICALLY SUSPICIOUS PALPABLE LUMP SHOULD BE BIOPSIED. Dictated by: Jerson Garcia M.D. on 01/22/2024 at 10:02 Approved by: Jerson Garcia M.D. on 01/22/2024 at 10:05 Dictated By: Jerson Garcia M.D. Signed By:01/22/24 1006 DD/ 1005 TD/TT: Assurance Sourcing Manager: us Eloy Nic DO [facility] Final Result * Pap Smear (11/16/2023 12:00 AM EDT) Swab Cervical swab / Unknown us Eloy Nic DO LAB CYTOLOGY ORDERABLES Final Re sult EXTERNAL LAB from Last 3 Months or Most Recently Relevant to Health Maintenance Insurance [facility]
--- OUTSIDE RECORDS SUMMARY | 2025-01-11 12:03 | XMS_ITS | Encounter Summary ---
Author Organization [facility] Address [address] [place] [address] Care Team Providers Care Food And Drug Inspector Name Role Phone Unavailable Primary Care Provider Unavailabl e Encounter Details Date Type Department Care Team (Late Contact Info) Description 01/11/2025 Bamboo flowsheet [facility] [address] [facility] [place] [address] Bethanie Barber, PA [address] [place] [address] [address] [place], [place] [address] Social History Tobacco Use Types Packs/Day Years [...] on file documented as of this encounter Plan of Treatment Upcoming Encounters Date Type Department Care Team (Late Contact Info) Description 01/15/2026 11:00 AM EDT Office Visit [facility] OB [address] [facility] [place] [phone] Bethanie Barber, PA [address] [place], [place] [address] [place], [place] [phone] documented as of this encounter Visit Diagnoses Not on filedocumented in this encounter
--- OUTSIDE RECORDS SUMMARY | 2025-01-11 12:03 | XMS_ITS | Patient Health Record ---
Author Organization [facility] Address [address] [place] [address] Care Team Providers Care Ax Survey Worker Name Role Phone NO, PCP Primary Care Provider Unavailabl e Allergies No Known Allergies Reason For Referral No Information Medications Medication SIG (Take, Route, Fr equency, Duration) Notes Start Date End Date Status CONTROL PILL 0 0 0 0 Active Immunizations Vaccine Route Administration Date Status Comme nts z2022 FluBLOK Quad PFS (0.5m L Admin) 18 y/o & older Unknown 04/17/2022 Refused z2022 Fluzone Quad PFS (0.5m L Admin) 6 months & older Unknown 06/15/2022 Contraindications z2022 Fluzone Quad PFS (0.5m L Admin) 6 months & older Unknown 07/20/2022 Refused Social History Tobacco Use: Social History Observation Description Date Details (start date - stop date) Never Smoker NA - NA Alcohol Misuse/Abuse (Audit C): Question Answer Notes Did you have a drink containing alcohol in the p ast year? No Points: 0 Interpretation: Negative Tobacco Use Question Answer Notes Are you a Never smoker Problems Problem Type SNOMED Code ICD Code Onset Dates Problem Status W/U Status Risk Notes Problem Heart murmur (77437641) Heart murmur (R01.1) Active confirmed Problem Elevated blood pressure reading without diagnosis of hypertension (097065656) Elevated blood pressure reading in office without diagnosis of hypertension (R03.0) Active confirmed Finding [id number] BMI 25.0-25.9,adult (Z68.25) Active confirmed Diagnosis [id number] COVID-19 (U07.1) Active confirmed Problem Body mass index 25-29 - overweight (083520265) BMI 26.0-26.9,adult (Z68.26) Inactive confirmed Plan Of Treatment No Information Insurance Providers Payer Name Payer Address Payer Phone Subscriber Number Group Number Insured Name Patient Relationship to Insured Coverage Start Date Coverage End Date [facility] [address] [place] [address] [id number] 1d Lucila Alarcon Self - patient is the insured Medical (General) History Medical History History ICD Code Heart murmur R01.1 Surgical History Surgery Date(Month/Year) wisdom teeth 1996 Dilation and Curettage 08/2003 Hospitalization History Reason Date(Month/Year) surgeries
--- OUTSIDE RECORDS SUMMARY | 2025-01-11 12:03 | XMS_ITS | Clinical Summary ---
Author Organization [facility] Address [address] [place] [address] Care Team Providers Care Sound Effects Person Name Role Phone Unavailable Primary Care Provider Unavailabl e Social History Tobacco Use Types Packs/Day Years Used Date Smoking Tobacco: Never Assessed Comments Unknown Sex and Gender Information Value Date Recorded Sex Assigned at Not on file Legal Sex Female 8:09 AM EST Gender Identity Not on file Sexual Orientation Not on file Plan of Treatment Health Maintenance Due Date Last Done Comments Anxiety Screening 1996 Depression Screening 1996 HIV Screening 1996 Hepatitis C Screening 1996 DTaP,Tdap,Td Vaccine (1 - Tdap) 1997 Hepatitis B Vaccine (1 of 3 - 19+ 3-dose series) 10/06 Cervical Cancer Screening [address] Colonography 2023 Cologuard (FIT-DNA) 2023 Colonoscopy 2023 Colorectal Cancer Screening 2023 Diabetes Screening 2023 Fecal Occult Blood 2023 Lipid Screening 2023 Sigmoidoscopy 2023 Covid-19 Vaccine ( season) 2024 Influenza Vaccine (Season Ended) 2025
--- OUTSIDE RECORDS SUMMARY | 2025-01-11 12:03 | XMS_ITS | Encounter Summary ---
Author Organization [facility] Address [address] [place] [address] Care Team Providers Care Process Inspector Name Role Phone Anjana Baird RECREATIONAL RESORT MANAGER Unavailable [phone] Encounter Details Date Type Department Care Team (Late Contact Info) Description 12/18/2023 Clinisync Result Encounter [facility] External Department Unsolicited Berenice Lucero DO [address] [facility] [address] [place], [place] [address] Social History Tobacco Use Types Packs/Day Years [...] [facility] [address] [facility] [place] [address] Bethanie Barber PA [address] [facility] [address] [place], [facility] documented as of this encounter Procedures Procedure Name Priority Date/Time Associated Diagnosis Comments ECG 12-LEAD 12/18/2023 9:21 AM EDT documented in this encounter Results * ECG 12-LEAD (12/18/2023 9:21 AM EDT) Anatomical Region Laterality Modality Other 12/18/2023 9:21 AM EDT Narrative 12/20/2023 10:44 AM EDT [place] [id number] Electrocardiograph Report Signed Patient: LUCILA GRANDE MR#: [id number] : 1980 Acct:[id number] Age/Sex: 43 / F ADM Date: 12/18/23 Loc: PST Attending Dr: Berenice Lucero D.O. Ordering Physician: Berenice Lucero D.O. Date of Service: 12/18/23 Procedure(s): ECG 12 lead Accession Number(s): [id number] cc: [facility] Test Date: 2023-12-18 Pat Name: LUCILA GRANDE Department: Room: - Gender: Female Media Consultant: : 1980 Requested By: BERENICE LUCERO Order Number: [id number] Reading MD: BANDAR SANTOS Measurements Intervals [place] Rate: 67 P: 0 NH: 142 QRS: 42 QRSD: 89 T: 29 QT: 390 QTc: 412 Interpretive Statements SINUS RHYTHM Compared to ECG 08/25/2022 21:44:38 Short NH interval no longer present ST (T wave) deviation no longer present Electronically Signed On 12-20-2023 10:44:31 EDT by BANDAR SANTOS Dictated By: Bandar Santos D.O. Signed By: 12/20/23 1044 DD/ 0921 TD/TT: Sql Server Architect: Procedure Note Radiology, Radiologist, - 12/20/2023 The [place] [id number] Electrocardiograph Report Signed Patient: LUCILA GRANDE RMR#: [id number] : 1980Acct:[id number] Age/Sex: 43 / FADM Date: 12/18/23 Loc: PST Attending Dr: Berenice Lucero D.O. Ordering Physician: Berenice Lucero D.O. Date of Service: 12/18/23 Procedure(s): ECG 12 lead Accession Number(s): [id number] cc: [facility] Test Date: 2023-12-18 Pat Name: LUCILA GRANDE Department: Room: - Gender: Female Media Consultant: : 1980 Requested By: BERENICE LUCERO Order Number: [id number] Reading MD: BANDAR SANTOS Measurements Intervals [place] Rate: 67 P: 0 NH: 142 QRS: 42 QRSD: 89 T: 29 QT: 390 QTc: 412 Interpretive Statements SINUS RHYTHM Compared to ECG 08/25/2022 21:44:38 Short NH interval no longer present ST (T wave) deviation no longer present Electronically Signed On 12-20-2023 10:44:31 EDT by BANDAR SANTOS Dictated By: Bandar Santos D.O. Signed By:12/20/23 1044 DD/ 0921 TD/TT: Sql Server Architect: us Berenice Lucero DO [facility] Final Result documented in this encounter Visit Diagnoses Not on filedocumented in this encounter Care Teams Process Inspector Relationship Specialty Start Date End Date Anjana Baird NP [address] [place] [address] PCP - Bonnie Commercial 10/15/22 documented as of this encounter
--- OUTSIDE RECORDS SUMMARY | 2025-01-11 12:03 | XMS_ITS | Encounter Summary ---
Author Organization [facility] Address [address] [facility] [place] [address] Care Team Providers Care Linen Clerk Name Role Phone Unavailable Primary Care Provider Unavailabl e Encounter Details Date Type Department Care Team (Latest Contact Info) Description 01/10/2025 Travel Social History Tobacco Use Types Packs/Day Years [...] EDT Office Visit [facility] B[facility] OB [address] [facility] [place] [address] Bethanie Barber PA [address] [facility] [place] [address] documented as of this encounter Visit Diagnoses Not on filedocumented in this encounter
--- OUTSIDE RECORDS SUMMARY | 2025-01-11 12:03 | XMS_ITS | Encounter Summary ---
Author Organization [facility] Address [address] [place] [address] Care Team Providers Care Recruiting Assistant Name Role Phone Anjana Baird MARKETING SEGMENT MANAGER Unavailable [phone] Encounter Details Date Type Department Care Team (Late Contact Info) Description 01/22/2024 Clinisync Result Encounter [facility] External Department Unsolicited Eloy Lucero DO [address], [place] [address] Social History Tobacco Use Types Packs/Day Years [...] EDT Office Visit [facility] [address] [place] [id number] Bethanie Barber PA [address] [place], [place] [id number] documented as of this encounter Procedures Procedure Name Priority Date/Time Associated Diagnosis Comments MM TOMOSYNTHESIS SCREENING BI 01/22/2024 10:05 AM EDT documented in this encounter Results * MM TOMOSYNTHESIS SCREENING BI (01/22/2024 10:05 AM EDT) Anatomical Region Laterality Modality Other 01/22/2024 10:0 5 AM EDT Narrative 01/22/2024 10:06 AM EDT [address] [address] Mammography Report Signed Patient: LUCILA GRANDE MR#: [id number] : 1980 Acct:[id number] Age/Sex: 43 / F ADM Date: 01/20/24 Loc: MAMMO Attending Dr: Eloy Lucero D.O. Ordering Physician: Eloy Lucero D.O. Results: Date of Service: 01/20/24 Follow Up: Procedure(s): MM tomosynthesis screening BI Accession Number(s): [id number] cc: Eloy Lucero D.O.; Physician,Non-Staff MBaldo Patient Name: LUCILA GRANDE MR#: [id number] : 1980 Exam Date: 01/20/2024 Ordering Doctor: [...] Treatments None Family Cancers None LOCATION: [facility] [place] BREAST COMPOSITION: There are scattered areas of [...] Signed By: 01/22/24 1006 DD/ 1005 TD/TT: Robotics Technologist: Procedure Note Radiology, Radiologist, MD - 01/22/2024 [place] [address] Mammography Report Signed Patient: LUCILA GRANDE RMR#: [id number] : 1980Acct:[id number] Age/Sex: 43 / FADM Date: 01/20/24 Loc: MAMMO Attending Dr: Eloy Lucero D.O. Ordering Physician: Eloy Lucero D.O.Results: Date of Service: 01/20/24Follow Up: Procedure(s): MM tomosynthesis screening BI Accession Number(s): [id number] cc: Eloy Lucero D.O.; Physician,Non-Staff Fariba Patient Name: LUCILA GRANDE MR#: [id number] : 1980 Exam Date: 01/20/2024 Ordering Doctor: [...] Treatments None Family Cancers None LOCATION: [facility] [place] BREAST COMPOSITION: There are scattered areas of [...] M.D. Signed By:01/22/24 1006 DD/ 1005 TD/TT: Robotics Technologist: Eloy Velazquezo DO [facility] Final Result documented in this encounter Visit Diagnoses Not on filedocumented in this encounter Care Teams Recruiting Assistant Relationship Specialty Start Date End Date Anjana Baird NP [address] [facility] [address] [place] [address] PCP - [place] [employer] 10/15/22 documented as of this encounter
[2025-01-13 17:08] LABS: Age Gdln ACOG Testing Note (.); HPV Aptima Negative (Negative); IGP, Aptima HPV, rfx 16/18,45 Note (.)
== END 2025-01-11 12:01 | disposition home or self-care (01) ==
LOC: LAB 12:00
PROVIDERS: Visit Provider Physician Assistant
DX: Z01.419 Encounter for gynecological examination (general) (routine) without abnormal findings (principal)
CPT/HCPCS: 87624; 88175

== ENCOUNTER 2025-01-20 06:49 | Outpatient (OUT) | payer BC, SELFPAY ==
--- NOTE | 2025-01-20 06:51 | MM_ITS ---
Patient Name: AYESHA GRANDE MR#: [id number] : 1980 Exam Date: 01/20/2025 Ordering Doctor: KRISTA TEE . RADIOLOGY REPORT PROCEDURE: MM TOMOSYNTHESIS SCREENING BI COMPARISON: MM TOMOSYNTHESIS SCREENING BI, 01/20/2024. MG MAMM SCREEN 3D [facility]SHALL CAD, 12/04/2022. MG MAMM SCREEN 3D [facility]SHALL CAD, 11/19/2021. MG MAMM SCREEN MARSHALL W CAD, 08/16/2018. INDICATIONS: Screening Calculator Name NCI Breast Cancer Risk Assessment Tool 5 Year Breast Cancer Risk Not Reported. Lifetime Breast Cancer Risk Not Reported. Personal Breast Cancer No Personal Ovarian Cancer No Treatments None Family Cancers None LOCATION: [facility] BREAST COMPOSITION: There are scattered areas of fibroglandular density. FINDINGS: RIGHT BREAST: No significant suspicious finding. Benign-appearing calcifications are present. There is a similar focal asymmetry. LEFT BREAST: No significant suspicious finding. Benign-appearing calcifications are present. There is a similar focal asymmetry. Benign-appearing lymph nodes are noted along the chest wall. DIAGNOSTIC CATEGORY 2--BENIGN FINDING: RECOMMENDATIONS: ROUTINE MAMMOGRAM AND CLINICAL EVALUATION IN 12 MONTHS. PLEASE NOTE: A NORMAL MAMMOGRAM DOES NOT EXCLUDE THE POSSIBILITY OF BREAST CANCER. A CLINICALLY SUSPICIOUS PALPABLE LUMP SHOULD BE BIOPSIED. Dictated by: Aditya Burgos MD on 01/20/2025 at 09:59 Approved by: Aditya Burgos MD on 01/20/2025 at 10:01
--- OUTSIDE RECORDS SUMMARY | 2025-01-20 06:51 | XMS_ITS | CCD ---
Author Organization [facility] Care Team Providers Care Circus Hand Name Role Phone MARKER ., DR ELIAS [...] Unavailable KARASIK ., DR WHELAN Attending Unavailabl Eloy Hawthorne Attending Unavailable Eloy Lucero Admitting Unavailable Eloy Lucero Attending Provider [phone] Oli CRUZ, Anjana Moreau Unavailable Unavailable Primary Care Provider UnavailBETHANIE Joel Attending Unavailable MAURO NOGUEIRA Attending Unavailable Medications Current Medications Medication Drug Class(es) Dates Sig (Normalized) Sig (Original) estradiol 0.1 mg/ml vaginal cream (3 sources) Estrogen Start: 01-11-2025 estradiol (Estrace) 0.1 MG/GM vaginal cream Indications: Well woman exam with routine gynecological exam 2g vaginal daily for 2 weeks, then 2 times weekly following initial 2 weeks 42.5 g 01/11/2025 Active Start: 01-11-2025 estradiol (Est race) 0.1 MG/GM vaginal cream Indications: Well woman exam with routine gynecological exam 2g vaginal daily for 2 weeks, then 2 times weekly following initial 2 weeks 42.5 g 01/11/2025 Active magnesium oxide 400 mg oral tablet (3 sources) Start: 01-11-2025 End: 02-10-2025 take 1 tablet by mouth once daily magnesium oxide (Mag-Ox) 400 MG tablet Indications: Well woman exam with routine gynecological exam Take 1 tablet (400 mg) by mouth Daily 30 tablet 6 01/11/2025 02/10/2025 Active melatonin 1 mg oral capsule (3 sources) take 1 capsule by mouth at bedtime Melatonin 1 MG capsule Take 1 mg by mouth at bedtime Active Problems Active Problems Problem Classification Problem Date Documented Date Episodic/Chronic Immunizations and screening for infectious disease (1 source) Encounter for screening for human papillomavirus (HPV); Translations: [ENC SCREENING HUMAN PAPILLOMAVIRUS] Onset: 11-12-2022 Episodic Past or Other Problems Problem Classification Problem Date Documented Da te Episodic/Chronic Nonspecific chest pain (4 sources) Other chest pain; Translations: [OTHER CHEST PAIN] Onset: 08-25-2022 Episodic Other aftercare (1 source) senior care (current) use of hormonal contraceptives; Translations: [SHEEP RANCHER HORMONAL CONTRACEPTIVES] Onset: 08-27-2022 Episodic Other aftercare (1 source) Other shelter (current) drug therapy; Translations: [OTH SHEEP RANCHER CURRENT DRUG THERAPY] Onset: 08-27-2022 Episodic Other bone disease and musculoskeletal deformities (1 source) Chondrocostal junction syndrome [Tietze]; Translations: [CHONDROCOSTAL JUNCTION SYND TIETZE] Onset: 08-27-2022 Episodic Other screening for suspected conditions (not mental disorders or infectious disease) (20 sources) Encounter for screening mammogram for malignant neoplasm of breast; Translations: [Encounter for screening for malignant neoplasm of cervix] Onset: 11-10-2022 Episodic Screening and history of mental health and substance abuse codes (1 source) Personal history of nicotine dependence; Translations: [PERSONAL HISTORY OF NICOTINE DEPEND] Onset: 08-27-2022 Episodic Results Test Name Value Interpretation Reference Range Facility IGP,APTIMA HPV,AGE GDLNon AGE GDLN ACOG TESTING Note . [facility] Comment on above: TESTS RESULT FLAG UN ITS REF RANGE LAB Clinician Provided Cytology Information Source.............Cervix;Endocervix No. of containers..01 ThinPrep Vial Age Gabriela ROGERS Valencia... 28 FLAG LEGEND: L-Low Normal,H-High Normal,LL-Alert Low,HH-Alert High <-Panic Low,>-Panic High,A-Abnormal,AA-Critical Abnormal Performed at: 01 =[address] [id number] Katerin Fragoso MD, HPV APTIMA Negative Negative [facility] Comment on above: This nucleic acid am plification test detects fourteen high- risk HPV types (16,18,31,33,35,39,45,51,52,56,58,59,66,68) without differentiation. Performed at: =[address] [id number] Public Health Dentist: Katerin Fragoso MD, Phone: [phone] Performed at: [address] [id number] Public Health Dentist: Katerin Fragoso MD, Phone: [phone] IGP, APTIMA HPV, RFX 16/18,45 Note . [facility] Comment on above: TESTS RESULT FLAG U NITS REF RANGE LAB DIAGNOSIS: 02 NEGATIVE FOR INTRAEPITHELIAL LESION OR MALIGNANCY. Specimen adequacy: 02 Satisfactory for evaluation. No endocervical component is identified. Performed by: 02 Cynthia Aquino, Telephone Lineman ([facility]) . 02 Note: Note 02 The Pap smear is a screening test designed to aid in the detection of premalignant and malignant conditions of the uterine cervix. It is not a diagnostic procedure and should not be used as the sole means of detecting cervical cancer. Both false-positive and false-negative reports do occur. Test Methodology: Note 02 This liquid based ThinPrep(R) pap test was screened with the use of an image guided system. HPV Genotype Reflex Note 02 Criteria not met, HPV Genotype not performed. FLAG LEGEND: L-Low Normal,H-High Normal,LL-Alert Low,HH-Alert High <-Panic Low,>-Panic High,A-Abnormal,AA-Critical Abnormal Performed at: [address] [address] Katerin Fragoso MD, BRUSH-SPATULA CERVIX ENDOCERVIX [facility] Laboratory - Chemistry and C hemistry - challengeon 06-29-2024 Cholesterol [Mass/Vol] 205 mg/dL [facility] - 200 [facility] Cholesterol in HDL [Mass/Vol] 92 mg/dL M: 35-65 F: 35-80 [facility] Cholesterol in LDL [Mass/Vol] 96 mg/dL [facility] - 100 [facility] Glucose [Mass/Vol] 96 mg/dL [facility] - 100 [facility] Triglyceride [Mass/Vol] 84 mg/dL [facility] - 150 [facility] No Panel Informationon 06-29 Interpretation and review of laboratory results Abnormal [facility] Sascha 01-01-2024 L Specimen: [id number] Received: 01/01/24 Status: SAMINA Taylor Num: [id number] Spec Type: Surgical Subm Dr: Eloy Lucero Tissues: A Fallopian Tube - Sterilization (BILATERAL FT) Procedures: HE/2, Gross/Micro L2 Age/ Patient Sex Location Account Attending Physician DorianLucila Dunlap 43/F LABELL [id number] Eloy Lucero SPEC NUM: [id number] RECD: 01/01/24 STATUS: SAMINA TAYLOR NUM: [id number] BALAJI: 01/01/[address]: Eloy Lucero ENTERED: 01/01/[address] [facility] [address]: Jose Carlos,Milla SPEC TYPE: Surgical DEPT: JANIE GALLOWAY ORDERED: [...] luminal centers lined by unremarkable pineda mucosa. Disaster Recovery Specialist sections are submitted in A1 (tube #1) and A2 (tube #2). TW ---- Specimen: [id number] Received: 01/01/24 Status: DALTONSonny Taylor Num: [id number] Spec Type: Surgical Subm Dr: Eloy Lucero Tissues: A Fallopian Tube - Sterilization (BILATERAL FT) Procedures: Rudy HINES ---- Patient: Lucila Grande Germán [id number] (Continued) ---- Specimen: [id number] Received: 01/01/24 (Continued) Signed (signature on file) Moe Marshall MD 01/04/24 1935 ---- Specimen: [id number] Received: 01/01/24 Status: SAMINA Taylor Num: [id number] Spec Type: Surgical Subm : Eloy Moser: A Fallopian Tube - Sterilization (BILATERAL FT) Procedures: Rudy HINES ---- Patient: Lucila Grande [id number] (Continued) ---- Specimen: [id number] Received: 01/01/24 (Continued) CPT Codes 63333 ---- ---- Specimen: [id number] Received: 01/01/24 Status: SAMINA Taylor Num: [id number] Spec Type: Surgical Subm Dr: Eloy Lucero Tissues: A Fallopian Tube - Sterilization (BILATERAL FT) Procedures: HE/2, Gross/Micro L2 ---- Patient: Lucila Grande [id number] (Continued) ---- Signed (signature on file) Chin-Alessandro Marshall MD 01/04/24 193 Normal [facility] MG MAMM SCREEN 3D MARSHALL CADon 12-04-2022 MG MAMM SCREEN 3D MARSHALL CAD Patient: LUCILA GRANDE Exam Date: 12/04/2022 : 1980 Gender:F Ordering : DR CLEOPATRA BUTLER . Admission #: [id number] Family : Order #: [id number] CLICK HERE TO VIEW EXAM RADIOLOGY REPORT [...] Treatments None Family Cancers None LOCATION: [facility] BREAST COMPOSITION: Scattered areas fibroglandular density. [...] Garcia M.D. on 12/04/2022 at 14:24 Normal [facility] PAP ACOG PANEL 2: 30 to 65on 11-19-2022 . . Normal [facility] Comment on above: Result Comment: Perf ormed at: WB Performed By: #### 4 [id number] #### [facility] [address] [address] [address] Aiden Marshall Age Gdln ACOG Testing 30-65 Normal [facility] Comment on above: Performed By: #### 4 [id number] #### [facility] [address] [address] [address] Aiden Marshall DIAGNOSIS: Comment [facility] Comment on above: Result Comment: NEGA TIVE FOR INTRAEPITHELIAL LESION OR MALIGNANCY. Performed at: WB Performed By: #### 4 [id number] #### [facility] [address] [address] [address] Aiden Marshall HPV Aptima Positive Abnormal Negative [facility] Comment on above: Result Comment: This nucleic acid amplification test detects fourteen high-risk HPV types (16,18,31,33,35,39,45,51,52,56,58,59,66,68) without differentiation. Performed at: =G Performed By: #### 4 [id number] #### [facility] [address] [address] [address] Aiden Marshall HPV Genotype 16 Negative Normal Negative [facility] Comment on above: Performed By: #### 4 [id number] #### [facility] [address] [address] [address] Aiden Marshall HPV Genotype 18,45 Negative Normal Negative [facility] Comment on above: Performed By: #### 4 [id number] #### [facility] [address] [address] [address] Aiden Marshall HPV Genotype Reflex Comment Normal [facility] Comment on above: Result Comment: Mookie betancourt, see HPV Genotype results. Performed at: WB Performed By: #### 4 [id number] #### [facility] [address] [address] [address] Aiden Marshall Methodology: Comment Normal [facility] Comment on above: Result Comment: This liquid based ThinPrep(R) pap test was screened with the use of an image guided system. Performed at: WB Performed By: #### 4 [id number] #### [facility] [address] [place] [address] Dr. Aiden Marshall Note: Comment Normal [facility] Comment on above: Result Comment: The Pap smear is a screening test designed to aid in the detection of premalignant and malignant conditions of the uterine cervix. It is not a diagnostic procedure and should not be used as the sole means of detecting cervical cancer. Both false-positive and false-negative reports do occur. . Performed at: WB Performed By: #### 4 [id number] #### [facility] [address] [place] [address] Dr. Aiden Marshall Performed by: Comment Normal [facility] Comment on above: Result Comment: Joey Harley, Dev Manager (ASCP) Performed at: WB Performed By: #### 4 [id number] #### [facility] [address] [place] [address] Dr. Aiden Marshall Specimen adequacy: Comment Normal [facility] Comment on above: Result Comment: Sati sfactory for evaluation. Endocervical and/or squamous metaplastic cells (endocervical component) are present. Performed at: WB Performed By: #### 4 [id number] #### [facility] [address] [place] [address] Dr. Aiden Marshall XR Abdomen 2 Viewson [...] by Jerson Freeman on 10/10/2022 1748 Normal [facility] Regional Engagement Consultant CBC AUTO DIFFon 08-26-2022 BASO # 0.1 103/ul Normal 0.0-0.1 [facility] Comment on above: Performed By: #### C BC #### [facility] [address] [place] [address] Dr. Aiden Marshall Basophils/100 WBC (Bld) 0.8 % Normal 0.2-2.0 [facility] Comment on above: Performed By: #### C BC #### [facility] [address] [place] [address] Dr. Aiden Marshall EO # 0.1 103/ul Normal 0.0-0.7 [facility] Comment on above: Performed By: #### C BC #### [facility] [address] [place] [address] Dr. Aiden Marshall Eosinophils/100 WBC (Bld) 0.7 % Critically low 0.9-7.0 [facility] Comment on above: Performed By: #### C BC #### [facility] [address] [place] [address] Dr. Aiden Marshall Erythrocyte distribution width (RBC) [Ratio] 13.4 % Normal 11.0-15.0 [facility] Comment on above: Performed By: #### C BC #### [facility] [address] [place] [address] Dr. Aiden Marshall Hematocrit (Bld) [Volume fraction] 39.8 % Normal 36.0-48.0 [facility] Comment on above: Performed By: #### C BC #### [facility] [address] [place] [address] Dr. Aiden Marshall Hemoglobin (Bld) [Mass/Vol] 13.7 g/dL Normal 12.0-16.0 [facility] Comment on above: Performed By: #### C BC #### [facility] [address] [place] [address] Dr. Aiden Marshall IG # 0.03 10e3/ul Normal 0.00-0.03 [facility] Comment on above: Performed By: #### C BC #### [facility] [address] [place] [address] Dr. Aiden Marshall IG % 0.3 % Normal 0.0-0.5 [facility] Comment on above: Performed By: #### C BC #### [facility] [address] [place] [address] Dr. Aiden Marshall LYMPH # 4.0 103/ul Critically high 1.2-3.8 [facility] Comment on above: Performed By: #### C BC #### [facility] [address] [place] [address] Dr. Aiden Marshall Lymphocytes/100 WBC (Bld) 41.5 % Normal 20.5-60.0 [facility] Comment on above: Performed By: #### C BC #### [facility] [address] [place] [address] Dr. Aiden Marshall MANUAL DIFF REQ NO Normal [facility] Comment on above: Performed By: #### C BC #### [facility] [address] [place] [address] Dr. Aiden Marshall MCH (RBC) [Entitic mass] 27.6 pg Normal 26.7-34.0 [facility] Comment on above: Performed By: #### C BC #### [facility] [address] [place] [address] Dr. Aiden Marshall MCHC (RBC) [Mass/Vol] 34.4 g/dL Normal 29.9-35.2 [facility] Comment on above: Performed By: #### C BC #### [facility] [address] [place] [address] Dr. Aiden Marshall MCV (RBC) [Entitic vol] 80.2 fL Critically low 81.0-99.0 [facility] Comment on above: Performed By: #### C BC #### [facility] [address] [place] [address] Dr. Aiden Marshall MONO # 0.4 103/ul Normal 0.3-0.8 [facility] Comment on above: Performed By: #### C BC #### [facility] [address] [place] [address] Dr. Aiden Marshall Monocytes/100 WBC (Bld) 4.1 % Normal 1.7-12.0 [facility] Comment on above: Performed By: #### C BC #### [facility] [address] [place] [address] Dr. Aiden Marshall NEUT # 5.1 103/ul Normal 1.4-6.5 [facility] Comment on above: Performed By: #### C BC #### [facility] [address] [address] [address] Aiden Marshall Neutrophils/100 WBC (Bld) 52.6 % Normal 43.0-75.0 [facility] Comment on above: Performed By: #### C BC #### [facility] [address] [place] [address] Dr. Aiden Marshall Platelet mean volume (Bld) [Entitic vol] 9.6 fL Normal 9.5-13.5 [facility] Comment on above: Performed By: #### C BC #### [facility] [address] [place] [address] Dr. Aiden Marshall PLT 316 103/ul Normal 150-450 [facility] Comment on above: Performed By: #### C BC #### [facility] [address] [place] [address] Dr. Aiden Marshall RBC 4.96 106/ul Normal 4.20-5.40 [facility] Comment on above: Performed By: #### C BC #### [facility] [address] [place] [address] Dr. Aiden Marshall WBC 9.7 103/ul Normal 4.0-11.0 [facility] Comment on above: Performed By: #### C BC #### [facility] [address] [place] [address] Dr. Aiden Marshall D-DIMERon 08-26-2022 D-DIMER 0.19 mg/L FEU Normal <=0.59 [facility] Comment on above: Performed By: #### D DIM #### [facility] [address] [place] [address] Dr. Aiden Marshall D-DIMER COMMENTS SEE BELOW Normal [facility] Comment on above: Result Comment: Incr eases [...] hospitalization. Performed By: #### D DIM #### [facility] [address] [place] [address] Dr. Aiden Marshall PROF 14(COMP METB)on 023 Albumin [Mass/Vol] 3.9 g/dL Normal 3.4-5.0 [facility] Comment on above: Performed By: #### C JAMMIE HSTROPN #### [facility] [address] [place] [address] Dr. Aiden Marshall Albumin/Globulin [Mass ratio] 1.1 {ratio} Normal [facility] Comment on above: Performed By: #### C JAMMIE HSTROPN #### [facility] [address] [place] [address] Dr. Aiden Marshall ALP [Catalytic activity/Vol] 54 U/L Normal 46-116 [facility] Comment on above: Performed By: #### C JAMMIE HSTROPN #### [facility] [address] [place] [address] Dr. Aiden Marshall ALT [Catalytic activity/Vol] 19 U/L Normal 14-59 [facility] Comment on above: Performed By: #### C JAMMIE HSTROPN #### [facility] [address] [place] [address] Dr. Aiden Marshall Anion gap [Moles/Vol] 13.5 mmol/L Normal [facility] Comment on above: Performed By: #### C JAMMIE HSTROPN #### [facility] [address] [place] [address] Dr. Aiden Marshall AST [Catalytic activity/Vol] 13 U/L Critically low 15-37 [facility] Comment on above: Performed By: #### C JAMMIE HSTROPN #### [facility] [address] [place] [address] Dr. Aiden Marshall Bilirubin [Mass/Vol] 0.4 mg/dL Normal 0.2-1.0 [facility] Comment on above: Performed By: #### C MP, HSTROPN #### [facility] [address] [address] [address] Aiden Marshall Calcium [Mass/Vol] 9.0 mg/dL Normal 8.5-10.1 [facility] Comment on above: Performed By: #### C MP, HSTROPN #### [facility] [address] [place] [address] Dr. Aiden Marshall Chloride [Moles/Vol] 99 mmol/L Normal 98-107 [facility] Comment on above: Performed By: #### C MP, HSTROPN #### [facility] [address] [place] [address] Dr. Aiden Marshall CO2 [Moles/Vol] 27.1 mmol/L Normal 21.0-32.0 [facility] Comment on above: Performed By: #### C MP, HSTROPN #### [facility] [address] [place] [address] Dr. Aiden Marshall Creatinine [Mass/Vol] 0.69 mg/dL Normal 0.55-1.02 [facility] Comment on above: Performed By: #### C JAMMIE, HSTROPN #### [facility] [address] [place] [address] Dr. Aiden Marshall EGFR-AF TURKISH >60 Normal >=60 [facility] Comment on above: Performed By: #### C MP, HSTROPN #### [facility] [address] [place] [address] Dr. Aiden Marshall EGFR-NON AF TURKISH >60 Normal >=60 [facility] Comment on above: Performed By: #### C MP, HSTROPN #### [facility] [address] [place] [address] Dr. Aiden Marshall Globulin (S) [Mass/Vol] 3.7 g/dL Normal [facility] Comment on above: Performed By: #### C MP, HSTROPN #### [facility] [address] [address] [address] Aiden Marshall Glucose [Mass/Vol] 104 mg/dL Normal 74-106 [facility] Comment on above: Performed By: #### C MP, HSTROPN #### [facility] [address] [address] [address] Aiden Marshall Potassium [Moles/Vol] 3.6 mmol/L Normal 3.5-5.1 [facility] Comment on above: Performed By: #### C MP, HSTROPN #### [facility] [address] [address] [address] Aiden Marshall Protein [Mass/Vol] 7.6 g/dL Normal 6.4-8.2 [facility] Comment on above: Performed By: #### C MP, HSTROPN #### [facility] [address] [address] [address] Aiden Marshall Sodium [Moles/Vol] 136 mmol/L Normal 136-145 [facility] Comment on above: Performed By: #### C MP, HSTROPN #### [facility] [address] [address] [address] Aiden Marshall Urea nitrogen [Mass/Vol] 8.0 mg/dL Normal 7.0-18.0 [facility] Comment on above: Performed By: #### C MP, HSTROPN #### [facility] [address] [address] [address] Aiden Marshall Urea nitrogen/Creatinine [Mass ratio] 11.6 mg/mg Normal [facility] Comment on above: Performed By: #### C MP, HSTROPN #### [facility] [address] [address] [address] Aiden Marshall TROPONIN, HIGH SENSITIVITYon 08-26-2022 HSTROP 4.9 pg/mL Normal 4.0-51.3 [facility] Comment on above: Result Comment: CUT- OFF POINTS HAVE BEEN ESTABLISHED BASED ON THE FOURTH UNIVERSAL DEFINITIONS OF MYOCARDIAL INFARCTION. THE UPPER REFERENCE LIMIT (URL) OF TROPONIN, DEFINED THE 99TH PERCENTILE OF cTnI DISTRIBUTION IN A REFERENCE POPULATION, HAS BEEN CONFIRMED THE DECISION THRESHOLD FOR UT DIAGNOSIS. Performed By: #### C , HSTROPN #### [facility] [address] [place], [place] [address] Dr. Aiden Marshall XR CHEST 1 Von 08-26-2022 XR CHEST 1 V EXAM: XR CHEST 1 V HISTORY: CHEST PAIN, UNSPECIFIED COMPARISON: None. FINDINGS: 1 view(s) of the chest. The lungs are clear without focal consolidation or pleural effusion. There is no pneumothorax. The cardiomediastinal silhouette is normal. IMPRESSION: No acute cardiopulmonary abnormality. Electronically authenticated by: EH CORBETT Date: 2022-08-25 22:52 Normal [facility] US Venous, Unilat, Lower Ext Lefton [...] by Elvin Barrios on 08/19/2022 1000 Normal [facility] Regional Engagement Consultant Vital Signs Date Time Vital Sign Value Performing Clinician Chula james 01-11-2025 11:02-0400 Body mass index (BMI) [Ratio] 29.49 kg/m2 Bethanie VELASCO Work Phone: [facility] 01-11-2025 11:02-0400 Body weight 66.22 kg Bethanie VELASCO Work Phone: [facility] 01-11-2025 11:02-0400 Diastolic blood pressure 70 mm[Hg] Bethanie VELASCO Work Phone: [facility] 01-11-2025 11:02-0400 Systolic blood pressure 120 mm[Hg] Bethanie VELASCO Work Phone: [facility] Encounters Encounter Date Encounter Type Care Provider Facility Start: 01-11-2025 End: 01-11-2025 Bamboo flowsheet Bethanie VELASCO Work Phone: [facility] Start: 01-11-2025 End: 01-13-2025 Bamboo flowsheet Bethanie VELASCO Work Phone: [facility] Start: 01-11-2025 End: 01-13-2025 Clinisync Result Encounter Bethanie VELASCO Work Phone: [facility] Unsolicited Start: 01-11-2025 End: 01-11-2025 Patient encounter procedure Bethanie VELASCO Work Phone: [facility] Work Phone: Start: 01-11-2025 End: 01-11-2025 Periodic preventive med est patient 40-64yrs Bethanie VELASCO Work Phone: [facility] Comment on above: Well woman exam with routine gynecological exam; Breast cancer screening by mammogram Start: 01-11-2025 End: 01-11-2025 ambulatory BETHANIE TEE Not Available Start: 06-29-2024 End: 06-29-2024 ambulatory MAURO NOGUEIRA Not Available Start: 06-22-2024 End: 06-29-2024 Patient encounter procedure Mauro Nogueira DO Work Phone: [facility] Comment on above: Screening for lipoid disorders; Screening for diabetes mellitus Start: 01-01-2024 End: 01-01-2024 ambulatory Eloy Nic Facility:[facility] Start: 01-01-2024 End: 01-01-2024 ambulatory Eloy Nic Work Phone: [facility] Work Phone: Start: 01-01-2024 End: 01-01-2024 Departed Referred Eloy Nic Work Phone: [facility] Start: 12-04-2022 End: 12-05-2022 ambulatory DR CLEOPATRA BUTLER . Facility:[facility] Start: 11-10-2022 End: 11-10-[address] CLEOPATRA BUTLER . Facility:[facility] Start: 08-25-2022 End: 08-26-[address] JADA CAMPBELL . Facility: Procedures Date Procedure Procedure Detail Performing Clinician Start: 01-11-2025 IGP,APTIMA HPV,AGE GDLN Bethanie Tee PA Work Phone: Start: 06-29-2024 Lipid panel Mauro Nogueira DO Work Phone: Start: 01-22-2024 Mammography Mauro Hayward DO Work Phone: Start: 11-16-2023 Microscopic observat ion [Identifier] in Cervix by Cyto stain Mauro Nogueira DO Work Phone: Plan of Treatment Date Care Activity Detail Author Start: 11-15-2028 Screening for malignant neoplasm of cervix [facility] Start: 01-15-2026 End: 01-15-2026 Patient encounter procedure 01/15/2026 11:00 AM EDT Office Visit [facility] [address] [place] [address] Bethanie Tee PA [address] [place] [address] [facility] Start: 04-17-2025 Influenza vaccination Influenz a Vaccine (Season Ended) [facility] Start: 01-21-2025 Screening for malignant neoplasm of breast Mammogram [facility] Start: 01-11-2025 End: 03-13-2026 MG Breast - bilateral Screening Bilateral screening mammogram Imaging Routine Breast cancer screening by mammogram Expected: 01/11/2025 (Approximate), Expires: 03/13/2026 [facility] Work Phone: Comment on above: Expected: 01/11/2025 (Approximate), Expires: 03/13/2026 Start: 01-11-2025 End: 01-11-2025 Patient encounter procedure 01/11/2025 11:00 AM EDT Office Visit [facility] [address] [place] [id number] Bethanie Tee PA [address] [place] [address] Arrived [facility] Comment on above: Arrived Start: 04-17-2024 Influenza vaccination Influenza Vacc ine (#1) [facility] Start: 1980 Screening for malignant neoplasm of colon [facility] THIN PREP TIS PAP AN D HR HPV DNA THIN PREP TIS PAP AND HR HPV DNA Pathology and Cytology Routine Well woman exam with routine gynecological exam Ordered: 01/11/2025 [facility] Comment on above: Ordered: 01/11/2025 Immunizations Immunization Date Immunization Notes Care Provider Fa [facility] 06-25-2023 Influenza, injectabl e, Madin Barbi Canine Kidney, preservative free, quadrivalent Mauro Nogueira DO Work Phone: [facility] 06-25-2023 influenza virus vacc ine, unspecified formulation Mauro Nogueira DO Work Phone: [facility] Payers Date Payer Category Payer Self-pay 2021 [facility] [id number] 1980 Unknown [id number] [id number] [id number] 1978 Unknown [id number] 2.16.84 [id number] 1978 Unknown [id number] 2.16.84 [id number] 1978 Unknown [id number] 2.16.84 [id number] 1978 Unknown [id number] 2.16.84 [id number] 1959 Unknown [id number] Unknown [id number] 2.16.8 [id number] Social History Date Type Detail Facility [facility] Work Phone: Start: 1980 Sex Assigned At Female F [facility] Start: 11-14-2023 [facility] Never [facility] tobacco [facility] Start: 01-14-2024 End: 01-11-2025 Alcoholic beverage intake Current drinker of alcohol (finding) [facility] Start: 11-14-2023 End: 01-14-2024 History of Social function [facility] Start: 11-14-2023 End: 01-14-2024 Tobacco use panel [facility] Start: 1980 Sex assigned at Not on file N [facility] History of Present illness Narrative 01-11-2025 KRISTA Cheema - 01/11/2025 11:00 AM EDT Note Date & Type Note Facility 01-11-2025 History of Presen t illness Narrative Reason for Appointment: Patient ID: Lucila Grande is a 44 y.o. female who presents [...] Vitals: Estimated body mass index is 29.49 kg/m as calculated from the following: Height as [...] of: KRISTA Cheema documented in this encounter [facility] History of Present illness Narrative 06-22-2024 Maggi Nuñez RN - 06/22/2024 9:05 AM EST Note Date & Type Note Facility 06-22-2024 History of Presen t illness Narrative Patient presents today for a [place] [facility] Screening documented in this encounter [facility] Evaluation note Note Date & Type Note Facility Evaluation note No assessment information [facility] Work Phone: Evaluation note Note Date & Type Note Facility Evaluation note Diagnosis Screening for lipoid disorders Screening for diabetes mellitus documented in this encounter [facility] Evaluation note Note Date & Type Note Facility Evaluation note Diagnosis Well woman exam with routine gynecological exam Routine gynecological examination Breast cancer screening by mammogram documented in this encounter [facility] Summary Purpose Family History No Family History Records FoundNo Family History Records FoundNo Family History Records FoundNo Family History Records Found Advance Directives No Advanced Directives Records Found Advance Directive Response Recorded Date/ Time Advance Directives No December 31 12:05pm Additional Source Comments INFORMATION SOURCE (unrecogn ized section and content) DATE CREATED AUTHOR 10/11/2022 [facility] Specialist DATE CREATED AUTHOR AUTHOR'S ORGANIZ ATION 12/08/2022 [facility] DATE CREATED AUTHOR AUTHOR'S ORGANIZ ATION 01/07/2024 [facility] DATE CREATED AUTHOR AUTHOR'S ORGANIZ ATION 01/14/2025 [facility] EPIC Care Teams (unrecognized sec tion and content) Team Status: Inactive Member Role Status Dates Eloy Lucero Attending Provider Active Start: June blair 2023 End: January 01, 2024 [employer] Relationship Specialty Start Date End Date Anjana Baird NP [address] [facility] [address] [place] [address] PCP - Bonnie Commercial 10/15/22 Goals (unrecognized section and content) Goals may be documented in a n alternate section Reason for Visit (unrecogniz ed section and content) Reason Comments Well Women Visit FOR RECORDS PERTAINING TO PATIENTS WHO ARE [...] BE BASED ON THE PRIMARY CLINICAL RECORDS. [facility]. provides no warranty or guarantee of the accuracy or completeness of information in this document.
== END 2025-01-20 06:50 | disposition home or self-care (01) ==
LOC: MAMMO 06:49
PROVIDERS: Visit Provider Physician Assistant
DX: Z12.31 Encounter for screening mammogram for malignant neoplasm of breast (principal)
CPT/HCPCS: 77063; 77067